=== PATIENT | male | born 1970 | race Caucasian/White ===

== ENCOUNTER → 2016-09-25 | Outpatient (CLI) | payer BC ==
--- NOTE | 2016-09-25 09:21 | DIAGNOSTIC IMAGING REPORT ---
RIGHT HIP 2 VIEWS HISTORY: HIP PAIN Right COMPARISON: None. FINDINGS: There is no fracture or dislocation. Soft tissues are unremarkable. Mild cartilage space narrowing and subchondral sclerosis at the superior aspect of the right hip consistent with osteoarthritis. The visualized pelvic bones are intact. Widening of the superior femoral head/neck junction. IMPRESSION: 1. Mild right hip osteoarthritis. 2. Widening of the superior femoral head/neck junction. This raises the possibility of femoral acetabular impingement. Electronically signed by: Richie Taylor M.D. 09/25/2016 9:19 AM Dictated Date/Time: 09/25/2016 9:18 AM
== END | disposition home or self-care (01) ==
LOC: C.RAD 08:20
PROVIDERS: ATTEND Family Medicine
DX: M25.551 Pain in right hip (principal)

== ENCOUNTER → 2017-09-20 | Outpatient (CLI) | payer OTHER ==
--- NOTE | 2017-09-20 19:24 | DIAGNOSTIC IMAGING REPORT ---
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 [employer] localizer images demonstrate no gross abnormality. There is no restricted diffusion to suggest acute or subacute infarction. Midline structures including the corpus callosum, brainstem, optic chiasm, pituitary and pineal glands are unremarkable. No cerebellar tonsillar herniation. Imaged cervical spine is unremarkable. No acute intracranial hemorrhage, midline shift, abnormal extra-axial collections, hydrocephalus or intracranial mass identified. Mild to moderate multifocal scattered areas of T2/FLAIR prolongation are seen within the periventricular and subcortical white matter of the cerebral hemispheres bilaterally. No infratentorial foci identified. Major flow voids at the level the skull base appear patent. Mastoid air cells are clear. There is mild polypoid mucosal thickening of the maxillary sinuses measuring up to 1.2 cm within the inferior left maxillary antrum. The orbits, soft tissues and skull are unremarkable. IMPRESSION: 1. No acute intracranial abnormality. 2. Indeterminate mild to moderate multifocal scattered areas of T2/FLAIR prolongation within the periventricular and subcortical white matter of the cerebral hemispheres bilaterally. These findings may reflect chronic microvascular ischemic changes or gliosis from chronic migraines among other etiologies. 3. Mild maxillary sinus disease. The above report was generated using voice recognition software. It may contain grammatical, syntax or spelling errors. Electronically signed by: Adrian Hernandez M.D. 09/20/2017 7:23 PM Dictated Date/Time: 09/20/2017 7:16 PM
== END | disposition home or self-care (01) ==
LOC: C.MRI 17:36
PROVIDERS: ATTEND Psychiatry & Neurology Neurology
DX: R90.82 White matter disease, unspecified (principal); G25.3 Myoclonus

== ENCOUNTER 2024-05-25 11:03 | Inpatient (IN) ==
--- NOTE | 2024-05-25 11:11 | Emergency Department Note ---
History of Present Illness General Chief complaint: Illness Stated complaint: REF BY DOC, NAUSEA, VOMITING, HEADACHE, DIARRHEA Time Seen by Provider: 05/25/24 11:09 History of Present Illness Maximum Pain Intensity: 9 This is a 53-year-old male with a history of myoclonus dystonia that presents to the emergency department via private vehicle referred by PCP with complaints of "nausea, vomiting, headache, diarrhea". Patient notes that 5 days ago he began with nausea, vomiting, diarrhea and headache. He has also noted some fatigue. He has noted chills, night sweats. Decreased oral intake. He can tolerate some drinks but notes he vomits every time he eats food. No close contacts with similar symptoms. Diarrhea only occurs when he eats. Patient notes he presented to the PCP office today and was referred here. Patient denies any chest pain but does feel short of breath at nighttime. No blood in the stool or vomit. Patient does note associated epigastric abdominal pain. Patient states that prior to coming here, he was at the PCP office and there was concern for possible palpable mass in the upper abdomen. No history of similar. Home Medications Medication Instructions Recorded Confirmed Type topiramate 100 mg tablet 100 mg PO BID 10/25/19 05/25/24 History cholecalciferol (vitamin D3) 50 50 mcg PO QAM 06/28/23 05/25/24 History mcg (2,000 unit) capsule citalopram 20 mg tablet 20 mg PO BID 06/28/23 05/25/24 History cyanocobalamin (vitamin B-12) 2,500 mcg PO QAM 06/28/23 05/25/24 History 2,500 mcg tablet propranolol 20 mg tablet 20 mg PO BID 06/28/23 05/25/24 History topiramate 50 mg tablet 50 mg PO BID 06/28/23 05/25/24 History ascorbic acid (vitamin C) 500 mg 500 mg PO QAM 07/09/23 05/25/24 History tablet (Vitamin C) ibuprofen 200 mg tablet 600 mg PO BID PRN Pain 07/09/23 05/25/24 History Allergies Allergy/AdvReac Type Severity Reaction Status Date / Time erythromycin base Allergy Unknown Rash Verified 08/08/23 10:36 Penicillins Allergy Unknown Rash Verified 08/08/23 10:36 Past Med/Surg History Problem List (Updated 05/25/24 @ 18:08 by [place] Monet PA-C) Abdominal pain, epigastric (Acute) Elevated procalcitonin (Acute) Leukocytosis (Acute) Abnormal computed tomography of abdomen and pelvis (Acute) Dystonia Pancreatic cancer metastasized to liver Diarrhea (Acute) Nausea and vomiting (Acute) Trochanteric bursitis, right hip Stiff neck Cervical arthritis S/P shoulder surgery Operation Date: 08/08/23 11:55 Actual Procedures p Right Shoulder Arthroscopy, Massive Rotator Cuff Repair, Subacromial Decompression, Biceps Tenodesis(Right) - Kareem Newton MD Encounter for pre-operative examination Traumatic rupture of right proximal biceps tendon Rupture of subscapularis tendon Tear of right infraspinatus tendon Supraspinatus tendon rupture Complete rotator cuff tear or rupture of right shoulder, not specified as traumatic Medical History Dizziness gradually worsening over the past year, occasional falls-he states neuro is aware and attributes this to his myoclonus dystonia Obesity Asthma in childhood Dysphagia Chronic coughing with swallowing and occasional choking-pt attributes to cervical spine osteoarthritis Spinal osteoarthritis BRCA gene positive Essential tremor Myoclonus dystonia Following with [facility] Neurology Surgical History History of vasectomy History of wisdom tooth extraction History of colonoscopy History of hand surgery Right History of foot surgery Left S/P deep brain stimulator placement Pt instructed to bring remote to [facility] appt and DOS Social History Smoking Status: Never smoker Second Hand Exposure: Yes (hx - father smoked, ex smoked); Do You Dip or Chew Tobacco: No; Hx Alcohol Use: Yes Hx Substance Use: No Preferred Language: Mexican Communication Ability: Effective College Or [employer] Registrar Required: No Beliefs That Will Affect Care: None Current Living Situation: Spouse Feels Safe at Home: Yes Assistive Devices: Glasses Review of Systems A total of 10 systems reviewed and were otherwise negative Physical Exam Vital Signs Vital Signs - 24 hr 05/25/24 11:07 05/25/24 11:28 05/25/24 11:28 Temperature 36.6 C Temperature Source Oral Pulse Rate 93 H Pulse Rate [Finger] Pulse Rate from SpO2 Sensor Respiratory Rate 20 Respiratory Effort / Characteristics Non-Labored Spontaneous Respiratory Depth Normal Respiratory Pattern Regular Blood Pressure 122/77 110/72 110/72 Blood Pressure [Right Arm] Blood Pressure Mean 92 79 79 Blood Pressure Mean [Right Arm] Blood Pressure Position [Right Arm] Pulse Oximetry 98 Oxygen Delivery Method Room Air Sepsis Recent Fever Within 48 Hours No Sepsis New/Unexplained Change in Mental Status N/A Sepsis Action Taken by Nursing No Action Required 05/25/24 11:37 05/25/24 11:37 05/25/24 11:38 Temperature Temperature Source Pulse Rate 77 Pulse Rate [Finger] Pulse Rate from SpO2 Sensor Respiratory Rate 15 Respiratory Effort / Characteristics Non-Labored Spontaneous Respiratory Depth Normal Respiratory Pattern Blood Pressure Blood Pressure [Right Arm] Blood Pressure Mean Blood Pressure Mean [Right Arm] Blood Pressure Position [Right Arm] Pulse Oximetry Oxygen Delivery Method Room Air Sepsis Recent Fever Within 48 Hours Sepsis New/Unexplained Change in Mental Status Sepsis Action Taken by Nursing 05/25/24 11:45 05/25/24 11:51 05/25/24 12:12 Temperature Temperature Source Pulse Rate 74 74 77 Pulse Rate [Finger] Pulse Rate from SpO2 Sensor 74 74 77 Respiratory Rate 24 21 21 Respiratory Effort / Characteristics Respiratory Depth Respiratory Pattern Blood Pressure Blood Pressure [Right Arm] Blood Pressure Mean Blood Pressure Mean [Right Arm] Blood Pressure Position [Right Arm] Pulse Oximetry 96 97 98 Oxygen Delivery Method Sepsis Recent Fever Within 48 Hours Sepsis New/Unexplained Change in Mental Status Sepsis Action Taken by Nursing 05/25/24 12:21 05/25/24 12:39 05/25/24 13:03 Temperature Temperature Source Pulse Rate 73 81 Pulse Rate [Finger] 70 Pulse Rate from SpO2 Sensor 74 79 Respiratory Rate 20 18 Respiratory Effort / Characteristics Respiratory Depth Respiratory Pattern Blood Pressure Blood Pressure [Right Arm] 100/45 L Blood Pressure Mean Blood Pressure Mean [Right Arm] 63 Blood Pressure Position [Right Arm] Pulse Oximetry 97 97 99 Oxygen Delivery Method Sepsis Recent Fever Within 48 Hours Sepsis New/Unexplained Change in Mental Status Sepsis Action Taken by Nursing 05/25/24 13:05 05/25/24 13:27 05/25/24 13:45 Temperature Temperature Source Pulse Rate 73 76 Pulse Rate [Finger] Pulse Rate from SpO2 Sensor 73 75 Respiratory Rate 22 23 Respiratory Effort / Characteristics Respiratory Depth Respiratory Pattern Blood Pressure 100/45 L Blood Pressure [Right Arm] Blood Pressure Mean 69 Blood Pressure Mean [Right Arm] Blood Pressure Position [Right Arm] Pulse Oximetry 95 97 Oxygen Delivery Method Sepsis Recent Fever Within 48 Hours Sepsis New/Unexplained Change in Mental Status Sepsis Action Taken by Nursing 05/25/24 14:00 05/25/24 14:00 05/25/24 14:24 Temperature Temperature Source Pulse Rate 71 79 Pulse Rate [Finger] Pulse Rate from SpO2 Sensor 71 79 Respiratory Rate 23 19 Respiratory Effort / Characteristics Respiratory Depth Respiratory Pattern Blood Pressure 128/64 Blood Pressure [Right Arm] Blood Pressure Mean 78 Blood Pressure Mean [Right Arm] Blood Pressure Position [Right Arm] Pulse Oximetry 96 98 Oxygen Delivery Method Sepsis Recent Fever Within 48 Hours Sepsis New/Unexplained Change in Mental Status Sepsis Action Taken by Nursing 05/25/24 14:42 05/25/24 15:00 Temperature Temperature Source Pulse Rate 75 Pulse Rate [Finger] 76 Pulse Rate from SpO2 Sensor 75 Respiratory Rate 21 20 Respiratory Effort / Characteristics Non-Labored Respiratory Depth Normal Respiratory Pattern Blood Pressure Blood Pressure [Right Arm] 128/74 Blood Pressure Mean Blood Pressure Mean [Right Arm] 92 Blood Pressure Position [Right Arm] Sitting Pulse Oximetry 98 97 Oxygen Delivery Method Room Air Sepsis Recent Fever Within 48 Hours Sepsis New/Unexplained Change in Mental Status Sepsis Action Taken by Nursing VITAL SIGNS - Vital signs and nursing notes were reviewed. Borderline tachycardic at 93 bpm, otherwise stable and afebrile. GENERAL -53-year-old male appearing his stated age who is in no acute distress. Communicates well with provider and answers questions appropriately. SKIN - Without rashes. No meningeal or petechial rash. HEAD - NC/AT. EYES - PERRL with EOMI bilaterally. Sclera anicteric. EARS - No deformities of external structures noted on gross examination bilaterally. External auditory canals without discharge or otorrhea. Tympanic membranes pearly boyer without retraction or bulging. No fluid or purulent material visualized behind the TM. Handle of malleus, umbo, cone of light, pars tensa/flaccid all easily visualized. NOSE - Midline and without cyanosis. MOUTH/OROPHARYNX - Without perioral cyanosis. Buccal mucosa pink and moist and without leukoplakia. Tongue midline with equal elevation of palate bilaterally. No tonsillar hypertrophy, erythema, or exudates noted. Fair dentition noted. No drooling, stridor, trismus, wheezing or tripoding. Normal phonation. NECK - Neck with FROM. Supple to palpation. No lymphadenopathy noted. No nuchal rigidity. LUNGS - Chest wall symmetric without accessory muscle use, intercostals retractions, or central cyanosis. Normal vesicular breath sounds CTA B/L. No wheezes, rales, or rhonchi appreciated. CARDIAC - RRR ABDOMEN - Abdominal contour normal without pulsations or visible masses. BS normoactive all four quadrants. No tenderness, palpable masses, hepatosplenomegaly, or ascites noted. EXTREMITIES - No clubbing or peripheral cyanosis. +5/5 strength noted in UE/LE bilaterally. NEUROLOGIC - Cranial nerves II through XII grossly intact. PSYCH -alert, oriented and pleasant on exam. Course Administered Medications Discontinued Medications Sodium Chloride (Nss) 1,000 mls @ 999 mls/hr IV .Q1H1M ONE Stop: 05/25/24 12:17 Last Infusion: 05/25/24 12:48 Dose: Infused Documented By: Admin: 05/25/24 11:39 Dose: 999 mls/hr Documented By: AARON Sodium Chloride (Nss) 1,000 mls @ 999 mls/hr IV .Q1H1M ONE Stop: 05/25/24 14:24 Last Infusion: 05/25/24 14:45 Dose: Infused Documented By: Admin: 05/25/24 13:44 Dose: 999 mls/hr Documented By: AARON Cefepime HCl (Maxipime 2000mg) 2,000 mg in 20 mls @ 5 mls/min IV NOW STA; Protocol Stop: 05/25/24 13:45 Last Admin: 05/25/24 13:46 Dose: 5 mls/min Documented By: AARON Ioversol (Optiray 320 100ml) 93 ml IV ONCE ONE Stop: 05/25/24 12:50 Last Admin: 05/25/24 12:50 Dose: 93 ml Documented By: KORY Medical Decision Making Laboratory Data 05/25/24 11:35 05/25/24 11:35 Lab Results 05/25/24 05/25/24 Range/Units 11:35 13:02 WBC 28.42 H (4.8-10.8) K/ul RBC 4.41 L (4.70-6.10) M/uL Hgb 11.5 L (14.0-18.0) g/dl Hct 36.8 L (42.0-52.0) % MCV 83.4 (80.0-100.0) fL MCH 26.1 (25.0-34.0) pg MCHC 31.3 L (32.0-36.0) g/dL RDW Std Deviation 44.3 (36.4-46.3) fL RDW Coeff of Sd 14.6 H (11.5-14.5) % Plt Count 359 (130-400) K/uL MPV 10.8 (9.4-12.4) fL Immature Gran % (Auto) 1.1 % Neut % (Auto) 77.3 % Lymph % (Auto) 4.0 % [place] % (Auto) 6.0 % Eos % (Auto) 11.2 % Baso % (Auto) 0.4 % Neut # (Auto) 21.99 H (1.40-6.50) K/uL Lymph # (Auto) 1.14 L (1.20-3.40) K/uL [place] # (Auto) 1.71 H (0.11-0.59) K/uL Eos # (Auto) 3.17 H (0.00-0.50) K/uL Baso # (Auto) 0.10 (0.00-0.20) K/uL Immature Gran # (Auto) 0.31 H (0.01-0.20) K/uL Toxic Vacuolation 1+ Polychromasia 1+ PT 16.2 H (9.0-12.0) Seconds INR 1.6 H (0.9-1.1) APTT 31 (21-31) Seconds PTT Ratio 1.2 Sodium 134 L (136-145) mmol/L Potassium 3.5 (3.5-5.1) mmol/L Chloride 101 (98-107) mmol/L Carbon Dioxide 21 (21-32) mmol/L Anion Gap 12 H (3-11) BUN 17 (6-23) mg/dl Creatinine 0.92 (0.6-1.4) mg/dl Est Cr Clr Drug Dosing 105.2 ml/min eGFR 98.85 BUN/Creatinine Ratio 18.5 (10-20) Glucose 94 (70-99(Fasting)) mg/dl Lactate 1.5 (0.4-2.0) mmol/L Calcium 9.1 (8.6-10.3) mg/dl Magnesium 2.2 (1.7-2.4) mg/dl Total Bilirubin 1.3 H (0.2-1.0) mg/dl AST 14 (13-39) U/L ALT 20 (7-52) U/L Alkaline Phosphatase 212 H (34-104) U/L Troponin I High Sens 11.5 (0-20) pg/ml Total Protein 7.1 (6.0-8.3) gm/dl Albumin 3.3 L (3.4-5.0) gm/dl Globulin 3.8 (2.5-4.0) gm/dl Albumin/Globulin Ratio 0.9 (0.9-2) Lipase 16 (11-82) U/L Procalcitonin 0.73 H (0-0.5) ng/ml TSH 2.859 (0.300-4.500) uIu/ml Urine Color Dark Yellow Urine Appearance Clear (Clear) Urine pH 5.5 (4.5-7.5) Ur Specific [place] 1.018 (1.000-1.030) Urine Protein Trace H (Negative) Urine Glucose (UA) Negative (Negative) Urine Ketones Trace H (Negative) Urine Blood Negative (Negative) Urine Nitrite Negative (Negative) Urine Bilirubin Negative (Negative) Urine Urobilinogen Negative (Negative) Ur Leukocyte Esterase Negative (Negative) Urine WBC (Auto) 0-5 (0-5) /hpf Urine RBC (Auto) 0-2 (0-2) /hpf U Hyaline Cast (Auto) 0-2 (0-2) /lpf U Epithel Cells (Auto) 0-2 (0-2) /hpf Urine Bacteria (Auto) None Seen (None Seen) Urine Mucus Present A (None Prsent) Adenovirus (PCR) Not Detected (NotDetected) B. pertussis DNA (PCR) Not Detected (NotDetected) B.parapertussis DNA PCR Not Detected (NotDetected) Lyme Disease Screen Negative (Negative) C. pneumoniae DNA (PCR) Not Detected (NotDetected) Coronavirus OC43 (PCR) Not Detected (NotDetected) Coronavirus HKU1 (PCR) Not Detected (NotDetected) Coronavirus 229E (PCR) Not Detected (NotDetected) SARS-CoV-2 (PCR) Not Detected (NotDetected) Coronavirus NL63 (PCR) Not Detected (NotDetected) Human Metapneumovir PCR Not Detected (NotDetected) Influenza Type A (PCR) Not Detected (NotDetected) Influenza Type B (PCR) Not Detected (NotDetected) M. pneumoniae (PCR) Not Detected (NotDetected) Parainfluenza 1 (PCR) Not Detected (NotDetected) Parainfluenza 2 (PCR) Not Detected (NotDetected) Parainfluenza 3 (PCR) Not Detected (NotDetected) Parainfluenza 4 (PCR) Not Detected (NotDetected) RSV (PCR) Not Detected (NotDetected) Entero/Rhino (PCR) Not Detected (NotDetected) Imaging Data Radiologist's Impression: Chest X-Ray 05/25/24 11:18 XR chest 1V portable CLINICAL HISTORY: cough TECHNIQUE: Single frontal radiograph of the chest was obtained. Comparison: Comparison is made to chest radiograph 07/18/2023 FINDINGS: Lines and tubes are stable. The cardiomediastinal silhouette is normal. The lungs are clear. No evidence of pleural effusion or pneumothorax. IMPRESSION: No acute chest disease. ACT 112: Negative or not required by law. Electronically signed by: David Toney M.D. 05/25/2024 12:02 PM Abdomen/Pelvis CT 05/25/24 12:37 CT abd pelvis IV con only CLINICAL HISTORY: Epigastric abd pain, nausea, vomiting TECHNIQUE: Helical axial images of the abdomen and pelvis were obtained and displayed. Automated dose lowering techniques and/or adjustment according to patient size were utilized for this exam. This exam was performed with intravenous contrast. CT DOSE: 3267.55 mGy.cm COMPARISON: None available at the time of this dictation. FINDINGS: Lower chest: For findings above the diaphragm, please see CT chest performed same day. Liver: Innumerable hepatic nodules are seen. Gallbladder and biliary tree: No calcified gallstones. Normal caliber wall. No intra- or extrahepatic biliary ductal dilation. Pancreas: There is a 30 mm hypodensity in the tail of the pancreas. Spleen: Unremarkable. Adrenals: Unremarkable. Kidneys and ureters: Unremarkable. Bladder: Unremarkable. Reproductive organs: Unremarkable. Bowel: Diverticulosis is seen without diverticulitis. The appendix is normal. Lymph nodes Retroperitoneal: Unremarkable. Pelvic: Unremarkable. Mesenteric: Unremarkable. Peritoneum: Normal. Vessels: Atherosclerotic calcifications are seen. Abdominal wall: A fat-containing umbilical hernia is seen. Fat-containing left inguinal hernia is seen. Bones: Degenerative changes in the visualized spine. IMPRESSION: 1. Interval removal hepatic hypodensities are seen concerning for metastatic disease. 2. Pancreatic tail hypodensity may represent metastasis versus primary pancreatic malignancy. 3. Diverticulosis without diverticulitis. ACT 112: Negative or not required by law. Electronically signed by: David Toney M.D. 05/25/2024 1:[address] 05/25/24 12:37 CT chest diagnostic w con CLINICAL HISTORY: Epigastric abd pain, nausea, vomiting TECHNIQUE: Multidetector row helical CT of the chest was performed with intravenous contrast. Coronal and sagittal reformations were obtained. Automated dose lowering techniques and/or adjustment according to patient size were utilized for this exam. Comparison: Comparison is made to chest radiograph 05/25/2024 FINDINGS: Lungs and pleura: Normal. No suspicious pulmonary nodules. Heart and pericardium: Heart size is normal. No pericardial effusion. Vessels: Unremarkable. Mediastinum and wilfred: Unremarkable. Chest wall and lower neck: Unremarkable. Abdomen: For findings below the diaphragm, please refer to CT of the abdomen dated the same. Bones: Degenerative changes in the thoracic spine. IMPRESSION: No acute abnormalities are seen in this patient with epigastric pain and vomiting. Please see CT abdomen for findings of liver lesions. ACT 112: Negative or not required by law. Electronically signed by: David Toney M.D. 05/25/2024 1:[address] 05/25/24 12:37 CT OF THE HEAD WITHOUT CONTRAST CLINICAL HISTORY: headache, nausea, vomiting COMPARISON STUDY: MRI of the brain September 20, 2017. TECHNIQUE: Helical axial images of the head were obtained without IV contrast. Automated exposure control was utilized for the study. A dose lowering technique was utilized adhering to the principles of ALARA. FINDINGS: No acute intracranial hemorrhage, midline shift or mass effect is present. Bilateral stimulators terminates within the thalami. This exam is mildly compromised by associated artifact. The ventricular system is unremarkable. The basal cisterns are patent. No extra-axial collections are present. There are no findings to suggest acute dural sinus thrombosis or acute territorial infarct. No significant calvarial abnormalities are present. Visualized portions of the sinuses and mastoid air cells are clear. IMPRESSION: No acute intracranial findings. ACT 112: Negative or not required by law. Electronically signed by: Heriberto Herrera M.D. 05/25/2024 2:00 PM MDM Narrative Patient was seen and evaluated as above in room B04. Review was performed of triage nursing notes and vital signs. I did review the PCP visit from earlier today. In short, patient presents with 5 days of nausea, vomiting, diarrhea, headache, abdominal pain with associated fatigue. Patient at baseline does note history of myoclonus dystonia. IV access with established. Labs were drawn. labs reveal leukocytosis 28.42. Mild anemia with hemoglobin of 11.5. INR 1.6. Hyponatremia 134. T. bili 1.3, alk phos 212. Pro-[place] 0.73 with a normal lactate. TSH was euthyroid state. Troponin normal. Urinalysis does not suggest infection. [employer] upper respiratory panel was negative. EKG was performed and per my interpretation reveals normal sinus rhythm at a rate of 77 bpm. QTc 454. QRS 104. No ST elevation. CT imaging of the head, chest as well as abdomen/pelvis was obtained. Head negative. Chest negative. Unfortunately the abdomen pelvis did have significant findings noting innumerable hepatic hypodensities concerning for metastatic disease with pancreatic tail hypodensity as well. I reviewed this with the patient as well as . Plan at this time is inpatient management. While here the patient was medicated with IV fluids to replenish volume loss with presenting symptoms today. Furthermore, IV antibiotics also ordered pending blood cultures. Case discussed with the hospitalist service. Please refer to further documentation regarding his stay. GCS: 15 In the evaluation and treatment of this patient the following differential diagnoses were entertained: Viral URI, malignancy, pneumonia, sepsis, among others. Impression & Plan Nausea and vomiting, Abnormal computed tomography of abdomen and pelvis, Diarrhea, Leukocytosis, Elevated procalcitonin, Abdominal pain, epigastric Discharge Plan Visit Data Chief Complaint: Illness Stated Complaint: REF BY DOC, NAUSEA, VOMITING, HEADACHE, DIARRHEA ED Provider: Niranjan Navarrete ED Midlevel Provider: Wset Monet Discharge Problem: Nausea and vomiting, Abnormal computed tomography of abdomen and pelvis, Diarrhea, Leukocytosis, Elevated procalcitonin, Abdominal pain, epigastric Patient Disposition: Admitted As Inpatient Condition: Good Discharge Instructions Interventions: ED Discharge Assessment Last Done: 05/25/24 17:31
[2024-05-25] MEDS: SODIUM CHLORIDE 0.9% 1,000 ML IV ONE ×2 (11:39→13:44)
--- NOTE | 2024-05-25 12:03 | XRay Report ---
XR chest 1V portable CLINICAL HISTORY: cough TECHNIQUE: Single frontal radiograph of the chest was obtained. Comparison: Comparison is made to chest radiograph 07/18/2023 FINDINGS: Lines and tubes are stable. The cardiomediastinal silhouette is normal. The lungs are clear. No evide nce of pleural effusion or pneumothorax. IMPRESSION: No acute chest disease. ACT 112: Negative or not required by law. Electronically signed by: David Toney M.D. 05/25/2024 12:02 PM
[2024-05-25 12:08] LABS: Hematocrit (blood only) 36.8 % (42.0-52.0); Hemoglobin 11.5 g/dl (14.0-18.0); Mean Corpuscular Hemoglobin 26.1 pg (25.0-34.0); Mean Corpuscular Hgb Conc 31.3 g/dL (32.0-36.0); Mean Corpuscular Volume 83.4 fL (80.0-100.0); Mean Platelet Volume 10.8 fL (9.4-12.4); Platelet Count 359 K/uL (130-400); RDW Coefficient of Variation 14.6 % (11.5-14.5); RDW Standard Deviation 44.3 fL (36.4-46.3); Red Blood Count 4.41 M/uL (4.70-6.10); White Blood Count 28.42 K/ul (4.8-10.8)
[2024-05-25 12:26] LABS: Albumin Globulin Ratio 0.9 (0.9-2); Albumin Level 3.3 gm/dl (3.4-5.0); BUN Creatinine Ratio 18.5 (10-20); Bilirubin,Total 1.3 mg/dl (0.2-1.0); Calcium 9.1 mg/dl (8.6-10.3); Creatinine Clr Calc Pharmacy 105.2 ml/min; Globulin 3.8 gm/dl (2.5-4.0); Magnesium 2.2 mg/dl (1.7-2.4); Potassium 3.5 mmol/L (3.5-5.1); Total Protein 7.1 gm/dl (6.0-8.3)
[2024-05-25 12:32] LABS: Troponin I High Sensitivity 11.5 pg/ml (0-20)
[2024-05-25 12:33] LABS: Basophils % (auto) 0.4 %; Eosinophils # (auto) 3.17 K/uL (0.00-0.50); Eosinophils % (auto) 11.2 %; Immature Granulocytes # (auto) 0.31 K/uL (0.01-0.20); Immature Granulocytes % (auto) 1.1 %; Lymphocytes # (auto) 1.14 K/uL (1.20-3.40); Monocytes # (auto) 1.71 K/uL (0.11-0.59); Neutrophils # (auto) 21.99 K/uL (1.40-6.50); Neutrophils % (auto) 77.3 %; Polychromasia 1+; Toxic Vacuolation 1+
[2024-05-25 12:36] LABS: INR 1.6 (0.9-1.1); Partial Thromboplastin Ratio 1.2; Partial Thromboplastin Time 31 Seconds (21-31); Prothrombin Time 16.2 Seconds (9.0-12.0)
[2024-05-25 12:39] LABS: Adenovirus PCR Not Detected (NotDetected); Bordetella parapertussis PCR Not Detected (NotDetected); Bordetella pertussis PCR Not Detected (NotDetected); Chlamydia pneumoniae PCR Not Detected (NotDetected); Coronavirus 229E PCR Not Detected (NotDetected); Coronavirus CoV-2 (COVID19)PCR Not Detected (NotDetected); Coronavirus HKU1 PCR Not Detected (NotDetected); Coronavirus NL63 PCR Not Detected (NotDetected); Coronavirus OC43PCR Not Detected (NotDetected); Human Metapneumovirus PCR Not Detected (NotDetected); Influenza A PCR Not Detected (NotDetected); Influenza B PCR Not Detected (NotDetected); Mycoplasma pneumoniae PCR Not Detected (NotDetected); Parainfluenza Virus 1 PCR Not Detected (NotDetected); Parainfluenza Virus 2 PCR Not Detected (NotDetected); Parainfluenza Virus 3 PCR Not Detected (NotDetected); Parainfluenza Virus 4 PCR Not Detected (NotDetected); Respiratory Syncytial VirusPCR Not Detected (NotDetected); Rhinovirus/Enterovirus PCR Not Detected (NotDetected)
[2024-05-25 12:41] LABS: Thyroid Stimulating Hormone 2.859 uIu/ml (0.300-4.500)
[2024-05-25] MEDS: OPTIRAY 320 100ml IV ONE (12:50)
[2024-05-25 13:26] LABS: Appearance Urine Clear (Clear); Bacteria Urine Automated None Seen (None Seen); Bilirubin Urine Negative (Negative); Blood Urine Negative (Negative); Cast Urine Automated 0-2 /lpf (0-2); Color Urine Dark Yellow; Epithelial Cell Urine Auto 0-2 /hpf (0-2); Glucose Urine UA Negative (Negative); Ketones Urine Trace (Negative); Leukocyte Esterase Urine Negative (Negative); Mucus Urine Present (None Prsent); Nitrite Urine Negative (Negative); Protein Urine Trace (Negative); RBC Urine Automated 0-2 /hpf (0-2); Specific Gravity Urine 1.018 (1.000-1.030); Urobilinogen Urine Negative (Negative); WBC Urine Automated 0-5 /hpf (0-5); pH Urine 5.5 (4.5-7.5)
[2024-05-25] MEDS: CEFEPIME 2000MG 2,000 MG/20 ML SYR IV STA (13:46)
--- NOTE | 2024-05-25 13:49 | CT Scan Report ---
CT chest diagnostic w con CLINICAL HISTORY: Epigastric abd pain, nausea, vomiting TECHNIQUE: Multidetector row helical CT of the chest was performed with intravenous contrast. Coronal and sagittal reformations were obtained. Automated dose lowering techniques and/or adjustment accord ing to patient size were utilized for this exam. Comparison: Comparison is made to chest radiograph 05/25/2024 FINDINGS: Lungs and pleura: Normal. No suspicious pulmonary nodules. Heart and pericardium: Heart size is normal. No pericardial effusion. Vessels: Unremarkable. Mediastinum and wilfred: Unremarkable. Chest wall and lower neck: Unremarkable. Abdomen: For findings below the diaphragm, please refer to CT of the abdomen dated the same. Bones: Degenerative changes in the thoracic spine. IMPRESSION: No acute abnormalities are seen in this patient with epigastric pain and vomiting. Please see CT abdo men for findings of liver lesions. ACT 112: Negative or not required by law. Electronically signed by: David Toney M.D. 05/25/2024 1:48 PM
--- NOTE | 2024-05-25 13:57 | CT Scan Report ---
CT abd pelvis IV con only CLINICAL HISTORY: Epigastric abd pain, nausea, vomiting TECHNIQUE: Helical axial images of the abdomen and pelvis were obtained and displayed. Automated dose lowering techniques and/or adjustment according to patient size were utilized for this exam. This e xam was performed with intravenous contrast. CT DOSE: 3267.55 mGy.cm COMPARISON: None available at the time of this dictation. FINDINGS: Lower chest: For findings above the diaphragm, please see CT chest performed same day. Liver: Innumerable hepatic nodules are seen. Gallbladder and biliary tree: No calcified gallstones. Normal caliber wall. No intra- or extrahepatic biliary ductal dilation. Pancreas: There is a 30 mm hypodensity in the tail of the pancreas. Spleen: Unremarkable. Adrenals: Unremarkable. Kidneys and ureters: Unremarkable. Bladder: Unremarkable. Reproductive organs: Unremarkable. Bowel: Diverticulosis is seen without diverticulitis. The appendix is normal. Lymph nodes Retroperitoneal: Unremarkable. Pelvic: Unremarkable. Mesenteric: Unremarkable. Peritoneum: Normal. Vessels: Atherosclerotic calcifications are seen. Abdominal wall: A fat-containing umbilical hernia is seen. Fat-containing left inguinal hernia is see n. Bones: Degenerative changes in the visualized spine. IMPRESSION: 1. Interval removal hepatic hypodensities are seen concerning for metastatic disease. 2. Pancreatic tail hypodensity may represent metastasis versus primary pancreatic malignancy. 3. Diverticulosis without diverticulitis. ACT 112: Negative or not required by law. Electronically signed by: David Toney M.D. 05/25/2024 1:56 PM
--- NOTE | 2024-05-25 14:03 | CT Scan Report ---
CT OF THE HEAD WITHOUT CONTRAST CLINICAL HISTORY: headache, nausea, vomiting COMPARISON STUDY: MRI of the brain September 20, 2017. TECHNIQUE: Helical axial images of the head were obtained without IV contrast. Automated exposure con trol was utilized for the study. A dose lowering technique was utilized adhering to the principles o f ALARA. FINDINGS: No acute intracranial hemorrhage, midline shift or mass effect is present. Bilateral stimul ators terminates within the thalami. This exam is mildly compromised by associated artifact. The vent ricular system is unremarkable. The basal cisterns are patent. No extra-axial collections are present . There are no findings to suggest acute dural sinus thrombosis or acute territorial infarct. No sign ificant calvarial abnormalities are present. Visualized portions of the sinuses and mastoid air cells are clear. IMPRESSION: No acute intracranial findings. ACT 112: Negative or not required by law. Electronically signed by: Heriberto Herrera M.D. 05/25/2024 2:00 PM
--- NOTE | 2024-05-25 15:17 | History & Physical Report ---
Date of Service May 25, 2024 Assessment & Plan (1) Nausea and vomiting: Plan: Symptomatic care. IV fluids. Antiemetics (2) Diarrhea: Plan: Could be viral, associated with nausea and vomiting. Symptomatic care. (3) Pancreatic cancer metastasized to liver: Plan: Incidental finding of pancreatic tail lesion with multiple metastases to the liver. Oncology consultation requested. 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 He denies hematemesis melena or hematochezia. He has lost some weight recently and has had some night sweats. Otherwise he has been stable. Incidental finding of what appears to be a pancreatic malignancy with multiple liver metastases seen on CT scan. Oncology has been consulted. CA 19-9 ordered and pending. Will treat with antiemetics and administer IV fluids until nausea, vomiting, diarrhea subside. Pain control measures ordered. He denies fever or chills Allergies Allergy/AdvReac Type Severity Reaction Status Date / Time erythromycin base Allergy Unknown Rash Verified 08/08/23 10:36 Penicillins Allergy Unknown Rash Verified 08/08/23 10:36 Home Medications Medication Instructions Recorded Confirmed Type topiramate 100 mg tablet 100 mg PO BID 10/25/19 08/08/23 History cholecalciferol (vitamin D3) 50 50 mcg PO QAM 06/28/23 08/08/23 History mcg (2,000 unit) capsule citalopram 20 mg tablet 10 mg PO BID 06/28/23 08/08/23 History cyanocobalamin (vitamin B-12) 2,500 mcg PO QAM 06/28/23 08/08/23 History 2,500 mcg tablet propranolol 20 mg tablet 20 mg PO BID 06/28/23 08/08/23 History topiramate 50 mg tablet 50 mg PO BID 06/28/23 08/08/23 History ascorbic acid (vitamin C) 500 mg 500 mg PO QAM 07/09/23 08/08/23 History tablet (Vitamin C) ibuprofen 200 mg tablet 600 mg PO BID PRN Pain 07/09/23 08/08/23 History ondansetron 4 mg disintegrating 4 mg PO Q6H PRN nausea and 08/08/23 Rx tablet vomiting #10 tabs oxycodone 5 mg tablet 5 - 10 mg (1 - 2 x 5 mg) PO Q6H 08/08/23 Rx PRN post operative pain #18 tabs cyclobenzaprine 5 mg tablet 5 mg PO TID PRN muscle spasm #30 11/20/23 11/20/23 Rx tabs Past Med/Surg History Problem List (Updated 05/25/24 @ 15:16 by Abner Burns MD) Dystonia Pancreatic cancer metastasized to liver Diarrhea Nausea and vomiting Trochanteric bursitis, right hip Stiff neck Cervical arthritis S/P shoulder surgery Operation Date: 08/08/23 11:55 Actual Procedures p Right Shoulder Arthroscopy, Massive Rotator Cuff Repair, Subacromial Decompression, Biceps Tenodesis(Right) - Kareem Newton MD Encounter for pre-operative examination Traumatic rupture of right proximal biceps tendon Rupture of subscapularis tendon Tear of right infraspinatus tendon Supraspinatus tendon rupture Complete rotator cuff tear or rupture of right shoulder, not specified as traumatic Medical History Dizziness gradually worsening over the past year, occasional falls-he states neuro is aware and attributes this to his myoclonus dystonia Obesity Asthma in childhood Dysphagia Chronic coughing with swallowing and occasional choking-pt attributes to cervical spine osteoarthritis Spinal osteoarthritis BRCA gene positive Essential tremor Myoclonus dystonia Following with [facility] Neurology Surgical History History of vasectomy History of wisdom tooth extraction History of colonoscopy History of hand surgery Right History of foot surgery Left S/P deep brain stimulator placement Pt instructed to bring remote to [facility] appt and DOS Social History Smoking Status: Never smoker Second Hand Exposure: Yes (hx - father smoked, ex smoked); Do You Dip or Chew Tobacco: No; Hx Alcohol Use: Yes Hx Substance Use: No Preferred Language: Puerto Rican Communication Ability: Effective Fuel Manager Required: No Beliefs That Will Affect Care: None Current Living Situation: Spouse Feels Safe at Home: Yes Assistive Devices: Glasses Review of Systems 2 Review of Systems: Constitutionalno fever or chills. He has experienced some recent weight loss ENTno blurred vision, no double vision, no epistaxis, no sore throat Respiratoryno cough, no wheezing, no shortness of breath Cardiacno palpitations, no chest pain, no syncope GInausea vomiting and diarrhea but no hematemesis melena or hematochezia GUno urinary retention, no urinary incontinence, no dysuria, no hematuria Musculoskeletalno joint pain, no muscle tenderness Skinno bruising, no rashes, no pruritus Neurono isolated weakness, no paresthesia, no weakness Psychno depression, no anxiety Physical Exam 2 Physical Exam: General-alert and oriented x3, no fever, no chills HEENT-head atraumatic and normocephalic, pupils equal and reactive to light, extraocular muscles intact Neck-no lymphadenopathy or thyromegaly, trachea midline Chest-clear to auscultation. No rales, wheezing or rhonchi Cardiac-regular rate and rhythm, normal S1 and S2 Abdomen-normal bowel sounds, no hepatosplenomegaly. Nondistended. No palpable masses Extremities-no cyanosis, clubbing, or edema Neuro-cranial nerves II through XII intact, motor and sensory function within normal limits, strength symmetrical, no focal deficits Psych-normal affect, normal mood Results & Data Results & Data Vital Signs (Past 12 Hours) Vital Signs Temp Pulse Pulse Resp BP BP Pulse Ox 05/25/24 14:42 75 21 98 05/25/24 14:24 79 19 98 05/25/24 14:00 71 23 96 05/25/24 14:00 128/64 05/25/24 13:45 76 23 97 05/25/24 13:27 73 22 95 05/25/24 13:05 100/45 L 05/25/24 13:03 70 18 100/45 L 99 05/25/24 12:39 81 97 05/25/24 12:21 73 20 97 05/25/24 12:12 77 21 98 05/25/24 11:51 74 21 97 05/25/24 11:45 74 24 96 05/25/24 11:38 77 05/25/24 11:37 05/25/24 11:37 15 05/25/24 11:28 110/72 05/25/24 11:28 110/72 05/25/24 11:07 36.6 C 93 H 20 122/77 98 O2 Del Method 05/25/24 14:42 05/25/24 14:24 05/25/24 14:00 05/25/24 14:00 05/25/24 13:45 05/25/24 13:27 05/25/24 13:05 05/25/24 13:03 05/25/24 12:39 05/25/24 12:21 05/25/24 12:12 05/25/24 11:51 05/25/24 11:45 05/25/24 11:38 05/25/24 11:37 Room Air 05/25/24 11:37 05/25/24 11:28 05/25/24 11:28 05/25/24 11:07 Room Air Laboratory Results 05/25/24 11:35 05/25/24 11:35 Code Status & VTE Plan Code Status Full code PG Care Time/CCT Total # of Minutes Spent Total Time Spent with Patient: Total time spent is greater than 50% in coordination of care (as documented) at patient's floor/unit and/or counseling patient: Coding Level of Care Code 30164 INT INP/OBS CARE 3/75MIN Diagnoses Nausea and vomiting R11.2 Diarrhea R19.7 Pancreatic cancer metastasized to liver C25.9; C78.7 Dystonia G24.9
[2024-05-25] MEDS ORDERED: MoRPHine SULFATE 2 MG/ML CARP IV PRN (17:59)
[2024-05-25] MEDS ORDERED: ONDANSETRON INJ 2 MG/ML 2 ML VIAL IV PRN (17:59)
[2024-05-25] MEDS: SODIUM CHLORIDE 0.9% 1,000 ML IV SCH (18:17)
[2024-05-25] MEDS: ACETAMINOPHEN 325 MG TAB PO PRN (18:33)
[2024-05-25] MEDS: MELATONIN 3 MG TAB PO SCH (21:38)
[2024-05-25] MEDS: CITALOPRAM 20 MG TAB PO SCH (21:38)
[2024-05-25] MEDS: TOPIRAMATE 50 MG TAB PO SCH (21:40)
[2024-05-25] MEDS: PROPRANOLOL HCL 20 MG TAB PO SCH (21:40)
[2024-05-25] MEDS: HEPARIN SOD 5,000 UNIT/0.5 ML VIAL SQ SCH (21:40)
[2024-05-25] MEDS: TOPIRAMATE 100 MG TAB PO SCH (21:40)
--- NOTE | 2024-05-26 06:47 | Electrocardiogram Report ---
Test Reason : Blood Pressure : */* mmHG Vent. Rate : 77 BPM Atrial Rate : 77 BPM P-R Int : 160 ms QRS Dur : 104 ms QT Int : 402 ms P-R-T Axes : 77 31 12 degrees QTcB Int : 454 ms Poor data quality, interpretation may be adversely affected Normal sinus rhythm Normal ECG When compared with ECG of 18-Jul-2023 08:48, Questionable change in QRS duration Confirmed by Mathieu Patino ([id number]) on 05/26/2024 6:47:19 AM Referred By: Confirmed By: Mathieu Patino
[2024-05-26 06:55] LABS: Hematocrit (blood only) 30.3 % (42.0-52.0); Hemoglobin 9.5 g/dl (14.0-18.0); Mean Corpuscular Hemoglobin 26.5 pg (25.0-34.0); Mean Corpuscular Hgb Conc 31.4 g/dL (32.0-36.0); Mean Corpuscular Volume 84.4 fL (80.0-100.0); Platelet Count 303 K/uL (130-400); RDW Coefficient of Variation 14.7 % (11.5-14.5); RDW Standard Deviation 45.1 fL (36.4-46.3); Red Blood Count 3.59 M/uL (4.70-6.10); White Blood Count 26.35 K/ul (4.8-10.8)
[2024-05-26 07:10] LABS: BUN Creatinine Ratio 14.1 (10-20); Potassium 3.5 mmol/L (3.5-5.1)
[2024-05-26 07:19] LABS: Basophils % (auto) 0.4 %; Eosinophils # (auto) 3.32 K/uL (0.00-0.50); Eosinophils % (auto) 12.6 %; Immature Granulocytes % (auto) 1.5 %; Lymphocytes # (auto) 1.06 K/uL (1.20-3.40); Monocytes # (auto) 1.46 K/uL (0.11-0.59); Monocytes % (auto) 5.5 %; Neutrophils # (auto) 20.01 K/uL (1.40-6.50); Polychromasia 1+
[2024-05-26] MEDS: CHOLECALCIFEROL 25 MCG (1000 UNITS) TAB PO SCH (08:45)
[2024-05-26] MEDS: CYANOCOBALAMIN (B-12) 2,500 MCG TABLET PO SCH (08:45)
[2024-05-26] MEDS: ASCORBIC ACID 500 MG TAB PO SCH (08:46)
--- NOTE | 2024-05-26 09:41 | Oncology Consultation ---
Date of Consultation May 26, 2024 Assessment & Plan (1) Liver lesion: (2) BRCA gene mutation positive in male: Plan Very pleasant gentleman with medical history of BRCA2 mutation admitted with GI complaints and found to have likely pancreatic tail lesion and multiple liver lesions. Based on clinical history and imaging, suspect that he likely has metastatic pancreatic cancer. Discussed with patient and his that I would recommend liver biopsy. Discussed with IR, plan to proceed with biopsy tomorrow afternoon. If he is confirmed to have pancreatic cancer with metastasis, goals of treatment will be to prolong life and improve symptoms. Would plan to treat with either FOLFIRINOX or gem/Abraxane followed by maintenance PARP inhibitor in the setting of BRCA2 mutation. History of Present Illness Reason for Consultation: Likely pancreatic cancer with metastasis Attending Physician: Abner Burns MD History of Present Illness 53-year-old gentleman who presented to the ER at [facility] with complaints of nausea, vomiting, headache and diarrhea. CT chest, abdomen and pelvis on 05/25/2024 revealed innumerable hepatic hypodensities concerning for metastatic disease, pancreatic tail hypodensity possibly representing metastasis versus primary pancreatic malignancy. CA 19-9 was ordered and is pending. Patient states that he has a history of BRCA2 mutation. Has extensive family history of breast malignancy. Allergies Allergy/AdvReac Type Severity Reaction Status Date / Time erythromycin base Allergy Unknown Rash Verified 08/08/23 10:36 Penicillins Allergy Unknown Rash Verified 08/08/23 10:36 Home Medications Medication Instructions Recorded Confirmed Type topiramate 100 mg tablet 100 mg PO BID 10/25/19 05/25/24 History cholecalciferol (vitamin D3) 50 50 mcg PO QAM 06/28/23 05/25/24 History mcg (2,000 unit) capsule citalopram 20 mg tablet 20 mg PO BID 06/28/23 05/25/24 History cyanocobalamin (vitamin B-12) 2,500 mcg PO QAM 06/28/23 05/25/24 History 2,500 mcg tablet propranolol 20 mg tablet 20 mg PO BID 06/28/23 05/25/24 History topiramate 50 mg tablet 50 mg PO BID 06/28/23 05/25/24 History ascorbic acid (vitamin C) 500 mg 500 mg PO QAM 07/09/23 05/25/24 History tablet (Vitamin C) ibuprofen 200 mg tablet 600 mg PO BID PRN Pain 07/09/23 05/25/24 History Patient History Medical History Dizziness gradually worsening over the past year, occasional falls-he states neuro is aware and attributes this to his myoclonus dystonia Obesity Asthma in childhood Dysphagia Chronic coughing with swallowing and occasional choking-pt attributes to cervical spine osteoarthritis Spinal osteoarthritis BRCA gene positive Essential tremor Myoclonus dystonia Following with [facility] [place]rology Surgical History History of vasectomy History of wisdom tooth extraction History of colonoscopy History of hand surgery Right History of foot surgery Left S/P deep brain stimulator placement Pt instructed to bring remote to [facility] appt and DOS Social History Smoking Status: Never smoker Second Hand Exposure: Yes (hx - father smoked, ex smoked); Do You Dip or Chew Tobacco: No; Hx Alcohol Use: No Hx Substance Use: No Preferred Language: Maltese Communication Ability: Effective Pediatric Dental Hygienist Required: No Beliefs That Will Affect Care: None Current Living Situation: Spouse Feels Safe at Home: Yes Assistive Devices: None Results & Data Vital Signs (Past 12 Hours) Vital Signs Temp Pulse Resp BP Pulse Ox O2 Del Method 05/26/24 08:49 103/63 05/26/24 07:46 37.1 C 68 16 94/62 L 96 Room Air
[2024-05-26] MEDS: traMADol HCL 50 MG TABLET PO STA (12:48)
[2024-05-26] MEDS: IRON SUCROSE 300 MG in SODIUM CHLORIDE 0.9% 250 ML IV ONE (14:15)
--- NOTE | 2024-05-26 16:08 | Hospitalist Progress Note ---
Date of Service May 26, 2024 Assessment & Plan (1) Nausea and vomiting: Plan: Resolved. He is now eating. IV fluids have been discontinued. Antiemetics as needed (2) Diarrhea: Plan: Could be viral, associated with nausea and vomiting. Symptomatic care. (3) Pancreatic cancer metastasized to liver: Plan: Incidental finding of pancreatic tail lesion with multiple metastases to the liver. Appreciate oncology consultation and recommendations. 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 This prevents MRI scanning Plan Hopeful discharge to home soon Admission and Anticipated Discharge Date Admission Date: May 25, 2024 Subjective Alert and oriented. Medications ordered to treat his headache. Head CT scan was negative for metastatic disease. He has a neurostimulator implanted in his chest which prevents MRI scanning. Oncology consultation noted but report is in draft status. Apparently he will undergo biopsy procedure tomorrow, May 27. is at the bedside and understands the current situation and upcoming biopsy attempt. Review of Systems 2 Review of Systems: Constitutionalno fever or chills. He has experienced some recent weight loss ENTno blurred vision, no double vision, no epistaxis, no sore throat Respiratoryno cough, no wheezing, no shortness of breath Cardiacno palpitations, no chest pain, no syncope GInausea vomiting and diarrhea but no hematemesis melena or hematochezia GUno urinary retention, no urinary incontinence, no dysuria, no hematuria Musculoskeletalno joint pain, no muscle tenderness Skinno bruising, no rashes, no pruritus Neurono isolated weakness, no paresthesia, no weakness Psychno depression, no anxiety Physical Exam 2 Physical Exam: General-alert and oriented x3, no fever, no chills HEENT-head atraumatic and normocephalic, pupils equal and reactive to light, extraocular muscles intact Neck-no lymphadenopathy or thyromegaly, trachea midline Chest-clear to auscultation. No rales, wheezing or rhonchi Cardiac-regular rate and rhythm, normal S1 and S2 Abdomen-normal bowel sounds, no hepatosplenomegaly. Nondistended. No palpable masses Extremities-no cyanosis, clubbing, or edema Neuro-cranial nerves II through XII intact, motor and sensory function within normal limits, strength symmetrical, no focal deficits Psych-normal affect, normal mood Results & Data Results & Data Vital Signs (Past 12 Hours) Vital Signs Temp Pulse Resp BP Pulse Ox O2 Del Method 05/26/24 14:16 37.1 C 81 16 94/60 L 95 Room Air 05/26/24 08:49 103/63 05/26/24 07:46 37.1 C 68 16 94/62 L 96 Room Air Laboratory Results 05/26/24 05:59 05/26/24 05:59 PG Care Time/CCT Total # of Minutes Spent Total Time Spent with Patient: Total time spent is greater than 50% in coordination of care (as documented) at patient's floor/unit and/or counseling patient: Coding Level of Care Code 25505 SUB INP/OBS CARE 2/35MIN Diagnoses Nausea and vomiting R11.2 Diarrhea R19.7 Pancreatic cancer metastasized to liver C25.9; C78.7 Dystonia G24.9
[2024-05-26] MEDS: traMADol HCL 50 MG TABLET PO PRN (18:28)
[2024-05-26] MEDS: POLYETHYLENE (MIRALAX) 17 GM PACK PO PRN (22:11)
[2024-05-27 07:01] LABS: Hematocrit (blood only) 33.3 % (42.0-52.0); Hemoglobin 10.5 g/dl (14.0-18.0); Mean Corpuscular Hemoglobin 26.8 pg (25.0-34.0); Mean Corpuscular Hgb Conc 31.5 g/dL (32.0-36.0); Mean Corpuscular Volume 84.9 fL (80.0-100.0); Mean Platelet Volume 10.5 fL (9.4-12.4); Platelet Count 307 K/uL (130-400); RDW Coefficient of Variation 14.8 % (11.5-14.5); Red Blood Count 3.92 M/uL (4.70-6.10); White Blood Count 28.89 K/ul (4.8-10.8)
[2024-05-27 07:32] LABS: BUN Creatinine Ratio 14.5 (10-20); Calcium 8.5 mg/dl (8.6-10.3); Potassium 3.9 mmol/L (3.5-5.1)
[2024-05-27 07:37] LABS: Basophils # (auto) 0.12 K/uL (0.00-0.20); Basophils % (auto) 0.4 %; Eosinophils % (auto) 12.5 %; Immature Granulocytes # (auto) 0.48 K/uL (0.01-0.20); Immature Granulocytes % (auto) 1.7 %; Lymphocytes # (auto) 1.15 K/uL (1.20-3.40); Monocytes % (auto) 6.2 %; Neutrophils # (auto) 21.74 K/uL (1.40-6.50); Neutrophils % (auto) 75.2 %
[2024-05-27] MEDS: IRON SUCROSE 300 MG in SODIUM CHLORIDE 0.9% 250 ML IV ONE (09:29)
--- NOTE | 2024-05-27 13:40 | Ultrasound Report ---
ULTRASOUND GUIDED LIVER LESION CORE BIOPSY INDICATION: Right lobe liver lesion; pancreatic tail lesion PROCEDURE: Procedure and risks were explained. Informed consent was obtained. A final timeout was com pleted. The abdomen was prepped and draped in sterile fashion. 1% lidocaine was utilized for skin ane sthesia. Utilizing ultrasound guidance, a 17-gauge coaxial needle was advanced into the right lobe liver lesio n. Ultrasound images were obtained. An 18-gauge core biopsy needle was advanced, and 2 cores were obt ained and given to the pathologist for review. The coaxial needle was removed and Band-Aid applied. T he patient tolerated the procedure well. Vital signs will be monitored postprocedure. IMPRESSION: Right lobe liver lesion core biopsy as above. Performed, dictated, and signed by Yobani Gibbons PA-C; to be co-signed by Dr. Gary Bardales. Electronically signed by: Gary Bardales M.D. 05/27/2024 1:52 PM
--- NOTE | 2024-05-27 14:41 | Hospitalist Progress Note ---
Date of Service May 27, 2024 Assessment & Plan (1) Nausea and vomiting: Plan: Resolved. He is now eating. IV fluids have been discontinued. Antiemetics as needed (2) Diarrhea: Plan: Could be viral, associated with nausea and vomiting. Symptomatic care. (3) Pancreatic cancer metastasized to liver: Plan: Incidental finding of pancreatic tail lesion with multiple metastases to the liver. Appreciate oncology consultation and recommendations. Biopsy procedure was completed earlier today, May 27. 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 This prevents MRI scanning (5) Iron deficiency: Plan: Currently receiving parenteral iron replacement, day 2. Fecal occult blood is ordered and pending Plan Hopeful discharge to home tomorrow, May 28 Admission and Anticipated Discharge Date Admission Date: May 25, 2024 Subjective The patient was seen after his liver biopsy done today, May 27. No obvious problems or complications. Day 2 of parenteral Venofer therapy. Hopefully he can go home tomorrow, May 28, and follow-up with his PCP and eventually oncology as an outpatient. Review of Systems 2 Review of Systems: Constitutionalno fever or chills. He has experienced some recent weight loss ENTno blurred vision, no double vision, no epistaxis, no sore throat Respiratoryno cough, no wheezing, no shortness of breath Cardiacno palpitations, no chest pain, no syncope GInausea vomiting and diarrhea but no hematemesis melena or hematochezia GUno urinary retention, no urinary incontinence, no dysuria, no hematuria Musculoskeletalno joint pain, no muscle tenderness Skinno bruising, no rashes, no pruritus Neurono isolated weakness, no paresthesia, no weakness Psychno depression, no anxiety Physical Exam 2 Physical Exam: General-alert and oriented x3, no fever, no chills HEENT-head atraumatic and normocephalic, pupils equal and reactive to light, extraocular muscles intact Neck-no lymphadenopathy or thyromegaly, trachea midline Chest-clear to auscultation. No rales, wheezing or rhonchi Cardiac-regular rate and rhythm, normal S1 and S2 Abdomen-normal bowel sounds, no hepatosplenomegaly. Nondistended. No palpable masses Extremities-no cyanosis, clubbing, or edema Neuro-cranial nerves II through XII intact, motor and sensory function within normal limits, strength symmetrical, no focal deficits Psych-normal affect, normal mood Results & Data Results & Data Vital Signs (Past 12 Hours) Vital Signs Temp Pulse Resp BP Pulse Ox O2 Del Method 05/27/24 13:44 37.0 C 75 14 116/64 98 Room Air 05/27/24 11:15 37.0 C 75 14 116/70 96 Room Air 05/27/24 07:33 36.6 C 77 14 110/64 96 Room Air Laboratory Results 05/27/24 06:34 05/27/24 06:34 PG Care Time/CCT Total # of Minutes Spent Total Time Spent with Patient: Total time spent is greater than 50% in coordination of care (as documented) at patient's floor/unit and/or counseling patient: Coding Level of Care Code 97972 SUB INP/OBS CARE 2/35MIN Diagnoses Nausea and vomiting R11.2 Diarrhea R19.7 Pancreatic cancer metastasized to liver C25.9; C78.7 Dystonia G24.9 Iron deficiency E61.1
[2024-05-27] MEDS: GELATIN SPONGE 12-7MM ONE (14:58)
[2024-05-28 06:05] LABS: Hematocrit (blood only) 31.4 % (42.0-52.0); Hemoglobin 9.9 g/dl (14.0-18.0); Mean Corpuscular Hemoglobin 26.4 pg (25.0-34.0); Mean Corpuscular Hgb Conc 31.5 g/dL (32.0-36.0); Mean Corpuscular Volume 83.7 fL (80.0-100.0); Mean Platelet Volume 10.4 fL (9.4-12.4); Platelet Count 280 K/uL (130-400); RDW Standard Deviation 45.9 fL (36.4-46.3); Red Blood Count 3.75 M/uL (4.70-6.10)
[2024-05-28 06:22] LABS: BUN Creatinine Ratio 16.1 (10-20); Calcium 8.6 mg/dl (8.6-10.3); Potassium 3.4 mmol/L (3.5-5.1)
[2024-05-28 06:56] LABS: Basophils % (auto) 0.4 %; Eosinophils # (auto) 3.46 K/uL (0.00-0.50); Eosinophils % (auto) 12.6 %; Immature Granulocytes # (auto) 0.46 K/uL (0.01-0.20); Immature Granulocytes % (auto) 1.7 %; Lymphocytes # (auto) 1.12 K/uL (1.20-3.40); Lymphocytes % (auto) 4.1 %; Monocytes # (auto) 1.56 K/uL (0.11-0.59); Monocytes % (auto) 5.7 %; Neutrophils % (auto) 75.5 %; Polychromasia 1+
[2024-05-28] MEDS: IRON SUCROSE 300 MG in SODIUM CHLORIDE 0.9% 250 ML IV ONE (08:23)
--- NOTE | 2024-05-28 12:01 | Discharge Summary ---
Discharge Summary Date of Service May 28, 2024 Principal Dx & Hospital Course #1 = Principal Diagnosis (1) Nausea and vomiting: Resolved. He is now eating. IV fluids have been discontinued. Antiemetics as needed (2) Diarrhea: Could be viral, associated with nausea and vomiting. Symptomatic care. Now resolved (3) Pancreatic cancer metastasized to liver: Incidental finding of pancreatic tail lesion with multiple metastases to the liver. Appreciate oncology consultation and recommendations. Biopsy procedure was completed on May 27. 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 This prevents MRI scanning (5) Iron deficiency: Treated with intravenous iron replacement while hospitalized. He will continue an oral iron supplement daily at discharge. Fecal occult blood is negative Plan Home today, May 28. He will follow-up with oncology as soon as possible Admission HPI Per Admitting Provider 53-year-old white male who developed nausea vomiting and diarrhea several days ago. He denies hematemesis melena or hematochezia. He has lost some weight recently and has had some night sweats. Otherwise he has been stable. Incidental finding of what appears to be a pancreatic malignancy with multiple liver metastases seen on CT scan. Oncology has been consulted. CA 19-9 ordered and pending. Will treat with antiemetics and administer IV fluids until nausea, vomiting, diarrhea subside. Pain control measures ordered. He denies fever or chills Discharge Exam General-alert and oriented x3, no fever, no chills HEENT-head atraumatic and normocephalic, pupils equal and reactive to light, extraocular muscles intact Neck-no lymphadenopathy or thyromegaly, trachea midline Chest-clear to auscultation. No rales, wheezing or rhonchi Cardiac-regular rate and rhythm, normal S1 and S2 Abdomen-normal bowel sounds, no hepatosplenomegaly. Nondistended. No palpable masses Extremities-no cyanosis, clubbing, or edema Neuro-cranial nerves II through XII intact, motor and sensory function within normal limits, strength symmetrical, no focal deficits Psych-normal affect, normal mood Discharge Plan Discharge Items Patient Disposition: Home - Self-Care Reason For Visit: N/V/D Discharge Diagnosis: Suspected pancreatic cancer with liver metastases, iron deficiency Condition on Discharge: Good Activity: Resume your previous activity Non-emergency contact: Primary Care Provider and Oncologist Call non-emergency contact if: your symptoms worsen Follow-up/Referrals: Macrina Aguilera MD [Primary Care Provider] - Diet: Regular Addtl Attending Provider Instructions: Take an iron supplement daily. Follow-up with oncology as soon as possible Pending Studies at Discharge: Yes Studies:: Pathology report from liver biopsy Stand-Alone Forms: My [facility], Smoking Cessation Medications and DC Order Prescriptions: Continued propranolol 20 mg tablet 20 mg PO BID topiramate 50 mg tablet 50 mg PO BID Rx Instructions: takes with 100 mg cholecalciferol (vitamin D3) 50 mcg (2,000 unit) capsule 50 mcg PO QAM cyanocobalamin (vitamin B-12) 2,500 mcg tablet 2,500 mcg PO QAM topiramate 100 mg Tablet 100 mg PO BID Rx Instructions: takes with 50 mg citalopram 20 mg tablet 20 mg PO BID ascorbic acid (vitamin C) [Vitamin C] 500 mg Tablet 500 mg PO QAM ibuprofen 200 mg Tablet 600 mg PO BID PRN (Reason: Pain) Discharge Orders: Discharge Order (Routine); Ordered 05/28/24 Ordered By: Abner Burns Admission Data Admit Date/Time: 05/25/24 15:05 Attending Provider: Abner Burns Admit Provider: Abner Burns Primary Care Provider: Macrina Aguilera Other Providers: Wing Diaz; Abner Burns Hospital Stay Data Consultations 05/25/24 14:19 ED Decision to Admit Stat 05/25/24 17:59 Consult Oncology Routine Diagnostic Imagining Performed 05/25/24 12:37 CT abd pelvis IV con only Stat CT chest diagnostic w con Stat CT head/brain wo con Stat 05/27/24 12:55 IR biopsy liver US Routine Pending Results Patient Have Any Pending Studies at Discharge: Yes Discharge Instructions Given to Patient (Per Discharging Provider) Take an iron supplement daily. Follow-up with oncology as soon as possible Total Time Total Time Spent Total Time Spent (In Minutes): 45 minutes Coding Level of Care Code 84369 INP/OBS DISCH >30 MIN Diagnoses Nausea and vomiting R11.2 Diarrhea R19.7 Pancreatic cancer metastasized to liver C25.9; C78.7 Dystonia G24.9 Iron deficiency E61.1
== END 2024-05-28 14:14 | disposition home or self-care (01) | DRG 436 ==
LOC: SUATTDRO → ED 11:03 → 3E 15:05

== ENCOUNTER 2024-06-28 14:21 | Inpatient (IN) ==
--- OUTSIDE RECORDS SUMMARY | 2024-06-28 14:26 | External Medical Summary | Continuity of Care Document ---
Author Name Unknown Organization [facility] [address] [facility] Address [address] [facility] [place] [id number] Care Team Providers Care Threat Monitoring Analyst Name Role Phone Macrina Aguilera Primary Care Physician [phone] [id number] Date(s): 06/19/24 - 06/19/24 [facility] [address] [facility] [place] [id number] [id number] [phone] Encounter Diagnosis Essential tremor(Discharge Diagnosis) - 06/19/24 Discharge Disposition: Home or Self Care Attending Physician: ROCKY Campbell, Ramandeep Angelo Referring Physician: MD Aguilera Amy L Allergies, Adverse Reactions, Alerts Substance Criticality Severity Reaction Reaction Severity Status erythromycin Rash Active penicillins Rash Active Immunizations Given and Recorded Vaccine Date Status Refusal Reason influenza virus vaccine, inactivated 06/04/19 Give n Medications citalopram 20 mg oral tablet Start: 03/26/24 1:56:00 PM EST, 1 tab, PO, bid Start Date: 03/26/24 Status: Ordered Potassium Chloride ([id number]-[id number]-Rpz 10) 10 mEq oral tablet, extended release Start: 06/19/24 8:58:00 AM EST, 1 tab, PO, Daily Start Date: 06/19/24 Status: Ordered Topamax 100 mg oral tablet Start: 03/26/24 1:46:00 PM EST, 1 tab, PO, bid, Disp# 180 tab, Refills: 3, Take in addition to the 50mg, total 150mg twice daily, Pharmacy: [id number] Start Date: 03/26/24 Stop Date: 03/21/25 Status: Ordered topiramate 50 mg oral tablet Start: 03/26/24 1:47:00 PM EST, 1 tab, PO, bid, Disp# 180 tab, Refills: 3, Take in addition to the 100mg, total 150mg twice daily, Pharmacy: [id number] Start Date: 03/26/24 Stop Date: 03/21/25 Status: Ordered Vitamin B12 Start: 10/03/22 9:06:00 AM EDT, 2,500 mcg =, PO, Daily Start Date: 10/03/22 Status: Ordered Vitamin D3 Start: 09/15/19 8:47:00 AM EDT, 2,000 Int_Unit =, PO, Daily Start Date: 09/15/19 Status: Ordered Mental Status 06/19/24 Barriers to Learning one year None evide nt Mandatory Health Literacy Documentation Yes Health Literacy Communication Barriers N ever Primary Language [place] Problem List Condition Confirmation Course Effective Dates Status H ealth Status Informant Acute maxillary sinusitis Confirmed Active Acute stress reaction Confirmed Active Memory loss Confirmed Active Anxiety Confirmed Active Anxiety Confirmed Active Hip pain Confirmed Active OA (osteoarthritis) of hip Confirmed Active Dystonic tremor Confirmed Active Essential tremor Confirmed Active FH: BRCA2 gene positive Confirmed Active Borderline hyperlipidemia Confirmed Active Lower back pain Confirmed Active Myoclonus dystonia Confirmed Active Right shoulder pain Confirmed Active Colon cancer screening Confirmed Active Acute shoulder pain Confirmed Active Swallowing dysfunction Confirmed Active Testicular mass Confirmed Active Tremor Confirmed Active Trochanteric bursitis of right hip Confirmed Active Weight disorder Confirmed Active Diagnosis Diagnosis Type Effective Dates Health Status Cl inical Service Informant Essential tremor Discharge Diagnosis 06/19/24 Non-Specified Procedures Procedure Date Related Diagnosis Body Site Status Rotator cuff repair 1 07/2023 Com pleted DBS - Deep brain stimulation 09/21/21 Completed Unknown 2 09/11/21 Completed Procedure 3 09/05/21 Completed Colonoscopy 4, 5 10/20/20 Complete d Fluoroscopy 6 09/15/20 Completed MRI of brain and brain stem without contrast 7 09/20/17 Completed Hip X-ray 8 09/25/16 Completed Shave biopsy and cauterization of skin 07/07/13 Completed H/O vasectomy 2004 Completed Hand plates and screws right 1997 Completed Ankle fracture 1991 Completed Post-herniorraphy pain Co mpleted 1Right side 2bilateral deep brain stimulator lead placement. 3placement of screws prep for DBS surgery 4IMPRESSIONS: -DIVERTICULOSIS IN THE SIGMOID COLON. -ONE 5 MM POLYP IN THE RECTUM, REMOVED WITH A COLD SNARE. RESECTED AND RETRIEVED. ONE MM POLYP AT THE RECTO-SIGMOID COLON, REMOVED WITH A COLD SNARE. RESECTED AND RETRIEVED. AWAIT PATHOLOGY RESULTS. 5path - hyperplastic polyp, tubular adenoma 6FL VIDEO SWALLOW IMPRESSION: 1. No aspiration identiifed. 2. Mild piriform sinus residue seen throughout the examination. 3. There is moderate anterior osteophytes at C5-C6 which results in posterior impression and moderate narrowing at the upper esophagus during swallowing. 4. Please see the speech pathologistreportfor detailed findings and recommendations. 71. No acute intracranial abnormality. 2. Indeterminate mild to moderate multifocal scattered areas of T2/FLAIR prolongation within the periventricular and subcortical white matter of louise cerebral hemispheres bilaterally. These findings may reflect chronic microvascular ischemic changes or gliosis from chronic migraines among other etiologies. 3. Mild maxillary sinus disease. 81. Mild right hip osteoarthritis 2. Widening of the superior femoral head/neck junction. This raises the possibility of femoral acetabular impingement. Social History Social History Type Response Smoking Status Never smoked cigaret ken Sex Male Sex Representation Male (finding) Implantable Device List Procedure Provider Procedure Date Device Type Site Unknown Unknown 09/20/21 Unknown Unknown Device Identifier Serial Number Lot or Batch Number Manufacturing Date Expiration Date Distinct Identification Code MRI Safety Implantable Status Assigning Authority Unknown Unknown N/A Unknown 06/16/23 Unknown Unknown Active Unkn own Unknown Unknown N/A Unknown Unknown Unknown Unknown Active Unkn own Unknown Unknown [id number] Unknown 04/29/22 Unknown Unknown Active Un known Unknown Unknown N/A Unknown 08/10/23 Unknown Unknown Active Unkn own Procedure Provider Procedure Date Device Type Site Unknown Unknown 09/20/21 Non Biological Unknown Device Identifier Serial Number Lot or Batch Number Manufacturing Date Expiration Date Distinct Identification Code MRI Safety Implantable Status Assigning Authority Unknown 1 [id number] Unknown Unknown Unknown Unknown Unknown Active Unknown Procedure Provider Procedure Date Device Type Site Unknown Unknown 09/11/21 Unknown Unknown Device Identifier Serial Number Lot or Batch Number Manufacturing Date Expiration Date Distinct Identification Code MRI Safety Implantable Status Assigning Authority Unknown Unknown NA Unknown 08/15/23 Unknown Unknown Active Unkn own Unknown Unknown NA Unknown 07/06/23 Unknown Unknown Active Unkn own Unknown Unknown [id number] Unknown Unknown Unknown Unknown Active Unknown Unknown Unknown [id number] Unknown 01/17/23 Unknown Unknown Active Unknown Unknown Unknown [id number] Unknown 03/20/23 Unknown Unknown Active Unknown 1[employer] #[id number] LEAD SENSIGHT [id number] IMPLANTED 09/11/21 Patient Care team information Care Team Personnel Name: Donato, PhD, Ewa Position: Physician - Neurosurgery Member Role: Lifetime Relationship Address: Neurosurgery [address] [place] [address] [address] [place] [address] [place] Name: MD Ale, Macrina Whaley Position: Physician - Family Med Member Role: Primary Care Provider Address: [address] [place] [address], [place] [address] Care Team Related Persons Name: JERROD MATT Name: JERROD MATT
[2024-06-28] MEDS: ONDANSETRON INJ 2 MG/ML 2 ML VIAL IV STA (14:56)
[2024-06-28 15:28] LABS: Alanine Aminotransferase 15 U/L (7-52); Albumin Globulin Ratio 0.8 (0.9-2); Albumin Level 2.9 gm/dl (3.4-5.0); Alkaline Phosphatase 320 U/L (34-104); Anion Gap 10 (3-11); Aspartate Aminotransferase 10 U/L (13-39); BUN Creatinine Ratio 30.1 (10-20); Bilirubin,Total 1.8 mg/dl (0.2-1.0); Blood Urea Nitrogen 22 mg/dl (6-23); Calcium 9.3 mg/dl (8.6-10.3); Carbon Dioxide 22 mmol/L (21-32); Chloride 101 mmol/L (98-107); Globulin 3.5 gm/dl (2.5-4.0); Glucose 115 mg/dl (70-99(Fasting)); Lipase 10 U/L (11-82); Potassium 3.8 mmol/L (3.5-5.1); Sodium 133 mmol/L (136-145); Total Protein 6.4 gm/dl (6.0-8.3)
[2024-06-28 15:37] LABS: Mean Corpuscular Hemoglobin 25.9 pg (25.0-34.0); Mean Corpuscular Hgb Conc 30.1 g/dL (32.0-36.0); Mean Corpuscular Volume 86.1 fL (80.0-100.0); Mean Platelet Volume 11.5 fL (9.4-12.4); Platelet Count 166 K/uL (130-400); RDW Coefficient of Variation 19.3 % (11.5-14.5); RDW Standard Deviation 60.9 fL (36.4-46.3); Red Blood Count 2.66 M/uL (4.70-6.10); White Blood Count 12.72 K/ul (4.8-10.8)
[2024-06-28 15:46] LABS: Influenza A virus by PCR Negative (Neg); Influenza B virus by PCR Negative (Neg); RSV by PCR Negative (Neg); SARS CoV2 RNA(COVID-19) Ceph NEGATIVE (Negative)
[2024-06-28 15:48] LABS: ALC (manual) 0.64 K/uL (1.2-3.4); ANC (manual) 10.18 K/uL (1.4-6.5); Dohle Bodies 1+; Eosinophils # (manual) 1.53 K/uL (0-0.50); Eosinophils % (manual) 12 %; Hematocrit (blood only) 22.9 % (42.0-52.0); Hemoglobin 6.9 g/dl (14.0-18.0); Lymphocytes # (manual) 0.64 K/uL (1.2-3.4); Lymphocytes % (manual) 5 %; Monocytes # (manual) 0.38 K/uL (0.11-0.59); Monocytes % (manual) 3 %; Neutrophils # (manual) 10.18 K/uL (1.40-6.50); Neutrophils % (manual) 80 %; Toxic Vacuolation 1+
[2024-06-28] MEDS ORDERED: SODIUM CHLORIDE 0.9% 100 ML IV PRN ×4 (16:02→23:51)
[2024-06-28] MEDS ORDERED: SODIUM CHLORIDE 0.9% 50 ML IV PRN ×4 (16:02→23:51)
[2024-06-28] MEDS: SODIUM CHLORIDE 0.9% 500 ML IV ONE (16:39)
--- NOTE | 2024-06-28 17:49 | History & Physical Report ---
Date of Service June 28, 2024 Assessment & Plan (1) Symptomatic anemia: Plan: Suspected secondary to chemotherapy Fecal occult blood Iron studies, B12, folate with a.m. labs Transfusion threshold < 7 overnight, can transfuse if < 9 and symptomatic during day time (2) Pancreatic cancer metastasized to liver: Plan: Unclear chemotherapy regimen on admission but just started this on Saturday Plan VTE prophylaxis - chemical deferred in the setting of anemia consider starting if hemoglobin stable Diet - regular Disposition - admit to [facility] Admission and Anticipated Discharge Date Admission Date: June 28, 2024 History of Present Illness Chief Complaint: Shortness of breath Primary Care Provider: Macrina Aguilera MD Javed Ding is a 54-year-old male with metastatic pancreatic cancer who presents to the ER with shortness of breath and dizziness. He started chemotherapy for pancreatic cancer on Saturday although unknown regimen at time of admission. He has been extremely fatigued with no energy, sleeping much of the time, shortness of breath with presyncope since his treatment. He called his oncologist and given prior anemia was suspected to be more anemic and was advised to go to the ER for possible transfusion. He denies any melena, hematochezia, hematuria, hematemesis, hemoptysis or significant bruising. No chest pain. He has also had 1+ pitting edema since the chemotherapy started. In the ER hemoglobin is 6.9 from previous value of 8.9 on June 19 and he is currently being transfused 1 unit when seen. Allergies Allergy/AdvReac Type Severity Reaction Status Date / Time erythromycin base Allergy Unknown Rash Verified 06/18/24 10:42 Penicillins Allergy Unknown Rash Verified 06/18/24 10:42 Home Medications Medication Instructions Recorded Confirmed Type cholecalciferol (vitamin D3) 50 50 mcg PO QAM 06/28/23 06/28/24 History mcg (2,000 unit) capsule citalopram 20 mg tablet 20 mg PO BID 06/28/23 06/28/24 History cyanocobalamin (vitamin B-12) 2,500 mcg PO QAM 06/28/23 06/28/24 History 2,500 mcg tablet ascorbic acid (vitamin C) 500 mg 500 mg PO QAM 07/09/23 06/28/24 History tablet (Vitamin C) melatonin 3 mg tablet 3 mg PO HS Sleep 06/16/24 06/28/24 History potassium chloride 10 mEq 10 meq PO QAM 06/16/24 06/28/24 History capsule,extended release topiramate 100 mg tablet (Topamax) 100 mg PO BID 06/18/24 06/28/24 History topiramate 50 mg tablet (Topamax) 50 mg PO BID 06/18/24 06/28/24 History oxycodone-acetaminophen 5 mg-325 1 tab PO Q6H 06/28/24 06/28/24 History mg tablet Past Med/Surg History Problem List Symptomatic anemia Iron deficiency Liver lesion Pancreatic cancer metastasized to liver Trochanteric bursitis, right hip Stiff neck Cervical arthritis Encounter for pre-operative examination Medical History 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 [facility]. 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 Obesity Dysphagia Chronic coughing with swallowing and occasional choking -pt attributes to cervical spine osteoarthritis Spinal osteoarthritis BRCA gene positive Essential tremor Myoclonus dystonia Following with [facility] Neurology tremors, sometimes stutters with and pt reports he can go off into a stare but can understand what you are saying. Surgical History Port-A-Cath in place (06/18/24) Insertion Access Port with Fluoroscopy Right Internal Jugular Vein(Right) - Nils Chung, History of arthroscopic surgery of shoulder (07/2023) rotator cuff, bicep repair - right History of vasectomy History of wisdom tooth extraction History of colonoscopy History of hand surgery Right History of foot surgery Left S/P deep brain stimulator placement Pt instructed to bring remote DOS Social History Smoking Status: Never smoker Tobacco Type: Cigarettes Second Hand Exposure: Yes (hx - father smoked, ex smoked); Do You Dip or Chew Tobacco: No (hx quit in high school); Hx Alcohol Use: Yes (hx social , don't drink anymore) Hx Substance Use: No Preferred Language: Bermudian Communication Ability: Effective Housekeeping Aid Required: No Beliefs That Will Affect Care: None Current Living Situation: Spouse Feels Safe at Home: Yes Assistive Devices: Cane and Other Review of Systems Review of Systems: All systems reviewed & are unremarkable except as noted in HPI & below Physical Exam Constitutional: WD/WN, vitals as above Respiratory: normal respiratory effort, lungs clear to auscultation Cardiovascular: RRR, no murmur, no edema Gastrointestinal (Abdomen): Percussion/Palpation: + abdomen tender (RUQ pain (normal for patient)) and abdomen soft; no guarding and abdomen not rigid Skin: + pallor Neurologic: moves all extremities and awake; not confused Psychiatric: A+Ox3, euthymic affect Results & Data Results & Data Vital Signs (Past 12 Hours) Vital Signs Temp Pulse Pulse Resp BP BP Pulse Ox 06/28/24 17:23 36.8 C 80 18 100/58 L 97 06/28/24 16:21 82 18 106/61 95 06/28/24 16:04 88 06/28/24 14:24 36.3 C L 115 H 19 98/57 L 98 O2 Del Method 06/28/24 17:23 06/28/24 16:21 Room Air 06/28/24 16:04 06/28/24 14:24 Room Air Laboratory Results Abnormal lab results 06/28/24 06/28/24 06/28/24 Range/Units 14:52 15:00 23:04 WBC 12.72 H (4.8-10.8) K/ul RBC 2.66 L (4.70-6.10) M/uL Hgb 6.9 L* 6.7 L* (14.0-18.0) g/dl Hct 22.9 L 22.1 L (42.0-52.0) % MCHC 30.1 L (32.0-36.0) g/dL RDW Std Deviation 60.9 H (36.4-46.3) fL RDW Coeff of Sd 19.3 H (11.5-14.5) % Neutrophils # (Manual) 10.18 H (1.40-6.50) K/uL Total Absolute Neuts 10.18 H (1.4-6.5) K/uL Lymphocytes # (Manual) 0.64 L (1.2-3.4) K/uL Total Abs Lymphocytes 0.64 L (1.2-3.4) K/uL Eosinophils # (Manual) 1.53 H (0-0.50) K/uL Sodium 133 L (136-145) mmol/L BUN/Creatinine Ratio 30.1 H (10-20) Glucose 115 H (70-99(Fasting)) mg/dl Total Bilirubin 1.8 H (0.2-1.0) mg/dl AST 10 L (13-39) U/L Alkaline Phosphatase 320 H (34-104) U/L Albumin 2.9 L (3.4-5.0) gm/dl Albumin/Globulin Ratio 0.8 L (0.9-2) Lipase 10 L (11-82) U/L Crossmatch See Detail Medications Administered ER Medications Given: Ondansetron 4mg IV Transfuse 1 units packed RBCs ECG Rate (beats per minute): 92 Rhythm: normal sinus Findings: + other (Nonspecific intraventricular conduction block) Comparison ECG Date: from (May 25, 2024) Change: the following changes noted (QRS duration increased, T wave flattening in anterior lateral leads) Code Status & VTE Plan Code Status Full VTE Prophylaxis Plan VTE Prophylaxis will be ordered: Yes PG Care Time/CCT Total # of Minutes Spent Total Time Spent with Patient: Total time spent is greater than 50% in coordination of care (as documented) at patient's floor/unit and/or counseling patient: Coding Level of Care Code 60276 INT INP/OBS CARE 3/75MIN Diagnoses Symptomatic anemia D64.9 Pancreatic cancer metastasized to liver C25.9; C78.7
--- NOTE | 2024-06-28 18:52 | Emergency Department Note ---
ED Provider Note CHIEF COMPLAINT: Fatigue, nausea, weakness HISTORY OF PRESENT ILLNESS: This 54-year-old male patient past medical history of pancreatic cancer with recent first chemo treatment this week presents to the emergency department with complaints of shortness of breath with exertion, fatigue. mentions that they were advised this would be a very difficult week after his induction chemotherapy, but she called the oncology nurse today who referred her to the emergency department thinking that he may be dehydrated. states he has had great difficulty with dehydration throughout the process. He has not been eating much more than toast. She states he did have a few bites of dinner last night. She denies any fevers, vomiting or diarrhea. REVIEW OF SYSTEMS: A review of systems was performed with positives and pertinent negatives listed in the history of present illness. 10 systems were reviewed and are otherwise negative. ALLERGIES: see below MEDICATIONS: see below PMH: see below SOCIAL HISTORY: see below DDx: Fatigue, nausea, weakness, dehydration, infectious etiology among others. PHYSICAL EXAM: Vital signs reviewed. General: Chronically ill-appearing 54-year-old male, in no significant distress. HEENT: No scleral icterus, conjunctiva are pale, PERRLA, neck supple. Dry mucous membranes. Cardiovascular: Regular rate and rhythm, no extra sounds. Pulmonary: Clear to auscultation bilaterally, normal work of breathing. Abdomen: Soft, obese, nondistended, minimal tenderness to palpation, nondistended, positive bowel sounds. Musculoskeletal: Atraumatic, no peripheral edema. Neurologic: Patient awake alert and oriented x 3, speech is clear Skin: Warm, dry, no rash EMERGENCY DEPARTMENT COURSE/MDM: [] MONITORING: An order for cardiac monitoring was placed and the patient is noted to be in a sinus rhythm at 88 beats per minute RADIOLOGY: chest x-ray to my interpretation reveals no focal lung consolidation or failure. EKG: to my interpretation reveals a normal sinus rhythm at 92 bpm. QTc of 424 nonspecific intraventricular conduction delay, normal ST segments. Poor quality baseline for interpretation. DISPOSITION:Admission I have personally spent greater than 45 minutes of critical care time in the direct management of this patient. This includes bedside care, interpretation of diagnostic studies, and testing, discussion with consultants, patient, and family members, and other required patient management activities. This 45 minutes is in excess of all separately billable procedures. 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 [facility]. 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 Obesity Dysphagia Chronic coughing with swallowing and occasional choking -pt attributes to cervical spine osteoarthritis Spinal osteoarthritis BRCA gene positive Essential tremor Myoclonus dystonia Following with [facility] [place] Neurology tremors, sometimes stutters with and pt reports he can go off into a stare but can understand what you are saying. Surgical History Port-A-Cath in place (06/18/24) Insertion Access Port with Fluoroscopy Right Internal Jugular Vein(Right) - Nils Chung, DO History of arthroscopic surgery of shoulder (07/2023) rotator cuff, bicep repair - right History of vasectomy History of wisdom tooth extraction History of colonoscopy History of hand surgery Right History of foot surgery Left S/P deep brain stimulator placement Pt instructed to bring remote DOS Social History Smoking Status: Never smoker Tobacco Type: Cigarettes Second Hand Exposure: Yes (hx - father smoked, ex smoked); Do You Dip or Chew Tobacco: No (hx quit in high school); Hx Alcohol Use: Yes (hx social , don't drink anymore) Hx Substance Use: No Preferred Language: Bengali Communication Ability: Effective Apparel Patternmaker Required: No Beliefs That Will Affect Care: None Current Living Situation: Spouse Feels Safe at Home: Yes Assistive Devices: Cane and Other Allergies Allergies Allergy/AdvReac Type Severity Reaction Status Date / Time erythromycin base Allergy Unknown Rash Verified 06/18/24 10:42 Penicillins Allergy Unknown Rash Verified 06/18/24 10:42 Home Meds Home Medications Medication Instructions Recorded Confirmed cholecalciferol (vitamin D3) 50 50 mcg PO QAM 06/28/23 06/28/24 mcg (2,000 unit) capsule citalopram 20 mg tablet 20 mg PO BID 06/28/23 06/28/24 cyanocobalamin (vitamin B-12) 2,500 mcg PO QAM 06/28/23 06/28/24 2,500 mcg tablet ascorbic acid (vitamin C) 500 mg 500 mg PO QAM 07/09/23 06/28/24 tablet (Vitamin C) melatonin 3 mg tablet 3 mg PO HS Sleep 06/16/24 06/28/24 potassium chloride 10 mEq 10 meq PO QAM 06/16/24 06/28/24 capsule,extended release topiramate 100 mg tablet (Topamax) 100 mg PO BID 06/18/24 06/28/24 topiramate 50 mg tablet (Topamax) 50 mg PO BID 06/18/24 06/28/24 oxycodone-acetaminophen 5 mg-325 1 tab PO Q6H 06/28/24 06/28/24 mg tablet Results & Data (ED) Vital Signs Vital Signs - 24 hr 06/28/24 14:24 06/28/24 16:04 06/28/24 16:21 Temperature 36.3 C L Temperature Source Temporal Artery Scan Pulse Rate 115 H 88 Pulse Rate [Apical] 82 Respiratory Rate 19 18 Respiratory Effort / Characteristics Non-Labored Respiratory Depth Normal Respiratory Pattern Regular Blood Pressure 98/57 L Blood Pressure [Left Arm] 106/61 Blood Pressure Mean 70 Blood Pressure Mean [Left Arm] 76 Blood Pressure Position [Left Arm] Lying Pulse Oximetry 98 95 Oxygen Delivery Method Room Air Room Air Sepsis Recent Fever Within 48 Hours No Sepsis New/Unexplained Change in Mental Status N/A Sepsis Action Taken by Nursing Physician Notified 06/28/24 17:23 06/28/24 17:47 06/28/24 18:00 Temperature 36.8 C 36.7 C 36.5 C Temperature Source Oral Oral Oral Pulse Rate 80 88 Pulse Rate [Apical] 82 Respiratory Rate 18 18 18 Respiratory Effort / Characteristics Non-Labored Respiratory Depth Normal Respiratory Pattern Regular Blood Pressure 100/58 L 112/64 Blood Pressure [Left Arm] 106/61 Blood Pressure Mean 72 80 Blood Pressure Mean [Left Arm] 76 Blood Pressure Position [Left Arm] Lying Pulse Oximetry 97 93 96 Oxygen Delivery Method Room Air Sepsis Recent Fever Within 48 Hours Sepsis New/Unexplained Change in Mental Status Sepsis Action Taken by Nursing 06/28/24 18:02 06/28/24 18:32 Temperature 36 C L 36.5 C Temperature Source Oral Oral Pulse Rate 82 80 Pulse Rate [Apical] Respiratory Rate 18 18 Respiratory Effort / Characteristics Respiratory Depth Respiratory Pattern Blood Pressure 108/61 106/64 Blood Pressure [Left Arm] Blood Pressure Mean 76 78 Blood Pressure Mean [Left Arm] Blood Pressure Position [Left Arm] Pulse Oximetry 94 96 Oxygen Delivery Method Sepsis Recent Fever Within 48 Hours Sepsis New/Unexplained Change in Mental Status Sepsis Action Taken by [facility] Medications Current Medication List: was personally reviewed by me Laboratory Data Attestation: I reviewed the patient's lab results. 06/28/24 14:52 06/28/24 14:52 Lab Results 06/28/24 06/28/24 06/28/24 Range/Units 14:52 15:00 16:22 WBC 12.72 H (4.8-10.8) K/ul RBC 2.66 L (4.70-6.10) M/uL Hgb 6.9 L* (14.0-18.0) g/dl Hct 22.9 L (42.0-52.0) % MCV 86.1 (80.0-100.0) fL MCH 25.9 (25.0-34.0) pg MCHC 30.1 L (32.0-36.0) g/dL RDW Std Deviation 60.9 H (36.4-46.3) fL RDW Coeff of Sd 19.3 H (11.5-14.5) % Plt Count 166 (130-400) K/uL MPV 11.5 (9.4-12.4) fL Neutrophils % (Manual) 80 % Lymphocytes % (Manual) 5 % Monocytes % (Manual) 3 % Eosinophils % (Manual) 12 % Neutrophils # (Manual) 10.18 H (1.40-6.50) K/uL Total Absolute Neuts 10.18 H (1.4-6.5) K/uL Lymphocytes # (Manual) 0.64 L (1.2-3.4) K/uL Total Abs Lymphocytes 0.64 L (1.2-3.4) K/uL Monocytes # (Manual) 0.38 (0.11-0.59) K/uL Eosinophils # (Manual) 1.53 H (0-0.50) K/uL Toxic Vacuolation 1+ Dohle Bodies 1+ Sodium 133 L (136-145) mmol/L Potassium 3.8 (3.5-5.1) mmol/L Chloride 101 (98-107) mmol/L Carbon Dioxide 22 (21-32) mmol/L Anion Gap 10 (3-11) BUN 22 (6-23) mg/dl Creatinine 0.73 (0.6-1.4) mg/dl Est Cr Clr Drug Dosing Not Reportable eGFR 107.45 BUN/Creatinine Ratio 30.1 H (10-20) Glucose 115 H (70-99(Fasting)) mg/dl Calcium 9.3 (8.6-10.3) mg/dl Total Bilirubin 1.8 H (0.2-1.0) mg/dl AST 10 L (13-39) U/L ALT 15 (7-52) U/L Alkaline Phosphatase 320 H (34-104) U/L Total Protein 6.4 (6.0-8.3) gm/dl Albumin 2.9 L (3.4-5.0) gm/dl Globulin 3.5 (2.5-4.0) gm/dl Albumin/Globulin Ratio 0.8 L (0.9-2) Lipase 10 L (11-82) U/L SARS-CoV-2 (PCR) NEGATIVE (Negative) Influenza Type A (PCR) Negative (Neg) Influenza Type B (PCR) Negative (Neg) RSV (RT-PCR) Negative (Neg) Blood Type A Negative Blood Type Recheck A Negative Antibody Screen NEGATIVE Crossmatch See Detail Administered Medications Discontinued Medications Sodium Chloride (Nss) 500 mls @ 999 mls/hr IV .Q31M ONE Stop: 06/28/24 16:35 Last Admin: 06/28/24 16:39 Dose: 999 mls/hr Documented By: MAURO Ondansetron HCl (Ondansetron Inj 2 Mg/Ml 2 Ml Vial) 4 mg IV NOW STA Stop: 06/28/24 14:36 Last Admin: 06/28/24 14:56 Dose: 4 mg Documented By: BERNABE Discharge Plan Visit Data Chief Complaint: Referred by Doctor Stated Complaint: SOB, LOW ON FLUIDS ED Provider: Vivian Guzman Forms Stand Alone Forms: [facility] [employer] Prescriptions Prescriptions: No Action cholecalciferol (vitamin D3) 50 mcg (2,000 unit) capsule 50 mcg PO QAM cyanocobalamin (vitamin B-12) 2,500 mcg tablet 2,500 mcg PO QAM citalopram 20 mg tablet 20 mg PO BID ascorbic acid (vitamin C) [Vitamin C] 500 mg Tablet 500 mg PO QAM melatonin 3 mg Tablet 3 mg PO HS potassium chloride 10 mEq Capsule, Extended Release 10 meq PO QAM topiramate [Topamax] 100 mg Tablet 100 mg PO BID topiramate [Topamax] 50 mg Tablet 50 mg PO BID oxycodone-acetaminophen 5-325 mg tablet 1 tab PO Q6H Referrals Referrals: Macrina Aguilera MD [Primary Care Provider] -
[2024-06-28] MEDS: TOPIRAMATE 100 MG TAB PO SCH (21:52)
[2024-06-28] MEDS: CITALOPRAM 20 MG TAB PO SCH (21:52)
[2024-06-28] MEDS: TOPIRAMATE 50 MG TAB PO SCH (21:52)
[2024-06-28] MEDS: MELATONIN 3 MG TAB PO SCH (21:52)
[2024-06-28] MEDS: Patient's HEIGHT &/or WEIGHT Needed STA (22:46)
[2024-06-28 23:50] LABS: Hematocrit (blood only) 22.1 % (42.0-52.0); Hemoglobin 6.7 g/dl (14.0-18.0)
--- NOTE | 2024-06-29 01:39 | XRay Report ---
EXAM: XR chest 1V portable CLINICAL HISTORY: Shortness of breath. TECHNIQUE: An X-ray image of the chest is obtained in AP projection. COMPARISON: Radiograph dated 06/18/2024. FINDINGS: A right central venous catheter is seen in situ with its distal tip at the cavoatrial junction. Pulmonary Parenchyma: Prominent perihilar broncho vascular markings. No evidence of consolidation, collapse, or focal opacities. No pulmonary nodules are identified. No evidence of pleural effusion or pleural thickening. Heart and Mediastinum: Heart size and shape are normal. No mediastinal widening or masses. No hilar or mediastinal lymphadenopathy. Bony Thorax: The bony thorax appears intact without fractures or deformities. Soft Tissues: Soft tissues overlying the chest wall are unremarkable. A device is seen projected over the left hemithorax, unchanged in position. IMPRESSION: 1. The prominence of perihilar broncho-vascular markings is probably due to pulmonary vascular congestion(stable). 2. No evidence of consolidation, collapse, or pleural effusion(stable). 3. A right central venous catheter is seen in situ with its distal tip at the cavoatrial junction, unchanged. 4. A device is seen projected over the left hemithorax, unchanged in position. Electronically signed by Lisa Taylor 06-29-2024 01:39 AM
[2024-06-29 01:49] LABS: INR 1.7 (0.9-1.1); Partial Thromboplastin Ratio 1.3; Partial Thromboplastin Time 34 Seconds (21-31); Prothrombin Time 17.7 Seconds (9.0-12.0)
[2024-06-29 05:18] LABS: Appearance Urine Clear (Clear); Bacteria Urine Automated None Seen (None Seen); Bilirubin Urine 1+ (Negative); Blood Urine Negative (Negative); Cast Urine Automated 0-2 /lpf (0-2); Color Urine Orange; Epithelial Cell Urine Auto 0-2 /hpf (0-2); Glucose Urine UA Negative (Negative); Ketones Urine Trace (Negative); Leukocyte Esterase Urine Trace (Negative); Nitrite Urine Positive (Negative); Protein Urine Trace (Negative); RBC Urine Automated 0-2 /hpf (0-2); Specific Gravity Urine 1.021 (1.000-1.030); Urobilinogen Urine Positive (Negative); WBC Urine Automated 0-5 /hpf (0-5)
[2024-06-29] MEDS: CHOLECALCIFEROL 25 MCG (1000 UNITS) TAB PO SCH (07:48)
[2024-06-29 08:07] LABS: Hematocrit (blood only) 20.4 % (42.0-52.0); Hemoglobin 6.4 g/dl (14.0-18.0); Mean Corpuscular Hemoglobin 26.9 pg (25.0-34.0); Mean Corpuscular Hgb Conc 31.4 g/dL (32.0-36.0); Mean Corpuscular Volume 85.7 fL (80.0-100.0); Mean Platelet Volume 11.4 fL (9.4-12.4); Platelet Count 102 K/uL (130-400); RDW Standard Deviation 55.6 fL (36.4-46.3); Red Blood Count 2.38 M/uL (4.70-6.10); White Blood Count 6.96 K/ul (4.8-10.8)
[2024-06-29] MEDS ORDERED: SODIUM CHLORIDE 0.9% 100 ML IV PRN (08:12)
[2024-06-29] MEDS ORDERED: SODIUM CHLORIDE 0.9% 50 ML IV PRN (08:12)
[2024-06-29 08:26] LABS: Alanine Aminotransferase 10 U/L (7-52); Albumin Globulin Ratio 0.9 (0.9-2); Albumin Level 2.3 gm/dl (3.4-5.0); Alkaline Phosphatase 238 U/L (34-104); Anion Gap 8 (3-11); Aspartate Aminotransferase 9 U/L (13-39); Bilirubin,Total 1.6 mg/dl (0.2-1.0); Blood Urea Nitrogen 18 mg/dl (6-23); Calcium 8.7 mg/dl (8.6-10.3); Carbon Dioxide 23 mmol/L (21-32); Chloride 104 mmol/L (98-107); Creatinine Clr Calc Pharmacy 150.4 ml/min; Globulin 2.7 gm/dl (2.5-4.0); Glucose 85 mg/dl (70-99(Fasting)); Iron 19 mcg/dl (35-175); Potassium 3.4 mmol/L (3.5-5.1); Sodium 135 mmol/L (136-145); Transferrin < 95 mg/dl (200-360)
[2024-06-29 08:52] LABS: Folate (Folic Acid),Ser orPlas > 22.30 ng/ml (>5.38)
[2024-06-29 08:53] LABS: Vitamin B12 > 1500 pg/ml (180-914)
[2024-06-29] MEDS: POTASSIUM CHLORIDE 10 MEQ TABCR PO SCH (09:26)
[2024-06-29] MEDS: POTASSIUM CHLORIDE CRTAB 20 MEQ TABCR PO STA (09:26)
[2024-06-29] MEDS: oxyCODONE/ACETAMINOPHEN 5mg/325mg TAB PO PRN (10:23)
[2024-06-29] MEDS ORDERED: ONDANSETRON INJ 2 MG/ML 2 ML VIAL IV PRN (11:43)
--- NOTE | 2024-06-29 12:31 | Oncology Consultation ---
Date of Consultation June 29, 2024 Assessment & Plan (1) Symptomatic anemia: Plan -Pleasant gentleman with metastatic pancreatic cancer status post 1 cycle of chemotherapy with NALIRIFOX who presented with symptomatic anemia. He is status post 3 units PRBC transfusion. Based on labs, he likely has anemia of chronic disease/inflammation secondary to malignancy as well as due to recent chemotherapy treatment. -Agree with PRBC transfusion to maintain hemoglobin above 7.5 -Patient did not receive G-CSF due to severe leukocytosis secondary to malignancy which has now resolved following cycle 1 of chemotherapy. If he develops neutropenia, recommend G-CSF with filgrastim for 480 mcg daily x 2 to 3 days or until ANC is above 1000. -Plan to start appetite stimulant with mirtazapine 15 mg p.o. nightly Thank you for this consult. Will follow peripherally while patient is in the hospital. Please feel free to call if you have any further questions. History of Present Illness Reason for Consultation: anemia, metastatic pancreatic cancer Attending Physician: Isha Castellano MD History of Present Illness Mr. Ding is a very pleasant 54-year-old gentleman with history of BRCA2 mutation who was recently diagnosed with metastatic pancreatic cancer and received cycle 1 of NALIRIFOX (liposomal irinotecan, oxaliplatin, leucovorin and fluorouracil) on 06/22/2024. He presented to the ER about a week after receiving cycle 1 of chemotherapy with severe fatigue. Labs revealed severe anemia with hemoglobin of 6.4, hematocrit of 20.4. Hemoccult was negative. Anemia labs suggestive of anemia of chronic disease/inflammation. He has so far received 3 units PRBC transfusion with improvement in energy level. Complains of diarrhea which started earlier today likely due to Dulcolax which she had taken for constipation over the weekend. Allergies Allergy/AdvReac Type Severity Reaction Status Date / Time erythromycin base Allergy Unknown Rash Verified 06/18/24 10:42 Penicillins Allergy Unknown Rash Verified 06/18/24 10:42 Home Medications Medication Instructions Recorded Confirmed Type cholecalciferol (vitamin D3) 50 50 mcg PO QAM 06/28/23 06/28/24 History mcg (2,000 unit) capsule citalopram 20 mg tablet 20 mg PO BID 06/28/23 06/28/24 History cyanocobalamin (vitamin B-12) 2,500 mcg PO QAM 06/28/23 06/28/24 History 2,500 mcg tablet ascorbic acid (vitamin C) 500 mg 500 mg PO QAM 07/09/23 06/28/24 History tablet (Vitamin C) melatonin 3 mg tablet 3 mg PO HS Sleep 06/16/24 06/28/24 History potassium chloride 10 mEq 10 meq PO QAM 06/16/24 06/28/24 History capsule,extended release topiramate 100 mg tablet (Topamax) 100 mg PO BID 06/18/24 06/28/24 History topiramate 50 mg tablet (Topamax) 50 mg PO BID 06/18/24 06/28/24 History oxycodone-acetaminophen 5 mg-325 1 tab PO Q6H 06/28/24 06/28/24 History mg tablet Patient History Medical History 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 [facility]. 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 Obesity Dysphagia Chronic coughing with swallowing and occasional choking -pt attributes to cervical spine osteoarthritis Spinal osteoarthritis BRCA gene positive Essential tremor Myoclonus dystonia Following with [facility] Neurology tremors, sometimes stutters with and pt reports he can go off into a stare but can understand what you are saying. Surgical History Port-A-Cath in place (06/18/24) Insertion Access Port with Fluoroscopy Right Internal Jugular Vein(Right) - Nils Cuhng DO History of arthroscopic surgery of shoulder (07/2023) rotator cuff, bicep repair - right History of vasectomy History of wisdom tooth extraction History of colonoscopy History of hand surgery Right History of foot surgery Left S/P deep brain stimulator placement Pt instructed to bring remote DOS Social History Smoking Status: Never smoker Tobacco Type: Cigarettes Second Hand Exposure: No; Do You Dip or Chew Tobacco: No; Tobacco Cessation Education Requested by Patient: No Hx Alcohol Use: No Hx Substance Use: No Preferred Language: Lao Communication Ability: Effective Grocery Sacker Required: No Beliefs That Will Affect Care: None Current Living Situation: Spouse Other Information That Helps Us Care for You: No Feels Safe at Home: Yes Safety Concerns: Feels Safe At This Time Assistive Devices: Cane Results & Data Vital Signs (Past 12 Hours) Vital Signs Temp Pulse Pulse Pulse Resp BP BP 06/29/24 12:02 88 18 102/63 06/29/24 11:02 36.4 C L 88 16 89/53 L 06/29/24 10:32 95 H 18 104/64 06/29/24 10:17 90 18 100/64 06/29/24 09:57 36.4 C L 86 18 97/59 L 06/29/24 07:18 36.4 C L 85 16 109/62 06/29/24 05:15 36.5 C 84 16 102/62 06/29/24 03:36 35.9 C L 84 18 103/63 06/29/24 02:19 36.4 C L 83 16 104/63 06/29/24 01:15 36.5 C 82 16 99/61 L 06/29/24 00:38 36.4 C L 84 16 108/65 Pulse Ox O2 Del Method 06/29/24 12:02 95 06/29/24 11:02 94 06/29/24 10:32 96 06/29/24 10:17 96 06/29/24 09:57 95 06/29/24 07:18 95 Room Air 06/29/24 05:15 95 Room Air 06/29/24 03:36 95 Room Air 06/29/24 02:19 97 06/29/24 01:15 96 Room Air 06/29/24 00:38 95 Room Air
[2024-06-29] MEDS: HEPARIN 100 UNIT/ML 5ML FLUSH FLUSH PRN (14:31)
--- NOTE | 2024-06-29 14:39 | Hospitalist Progress Note ---
Date of Service June 29, 2024 Assessment & Plan (1) Symptomatic anemia: (2) Pancreatic cancer metastasized to liver: Plan Stanley is a 54-year-old male with a past medical history of essential tremor with metastatic pancreatic cancer who presents to the ER with complaints of fatigue and fall. Did not hit his head, no loss of consciousness. Found to be anemic at 6.9, admitted for blood transfusions and further workup. #Symptomatic anemia Suspected secondary to chemotherapy, first dose 06/22/2024 Fecal occult blood negative. B12 and folate significantly elevated. Iron studies with low iron and low transferrin but elevated ferritinsuspect this is acute phase reactant with recent chemotherapy. Received 2 units PRBCs, hemoglobin 6.4 this morning. Plan for additional 1 unit PRBCs today Posttransfusion H&H Heme/onc consulted #Pancreatic cancer metastasized to the liver Follows with CCP, Dr. Rashid Unclear his current regimen at this time #essential tremorcontinue Celexa and Topamax Dispo: Continued inpatient stay DVT prophylaxis: Chemical held in the setting of acute anemia Family updated at bedside 06/29 Admission and Anticipated Discharge Date Admission Date: June 28, 2024 Subjective patient seen lying in bed, present at bedside. states that he has been having some brain fog this morning and wondering if it is a side effect from chemo. Reports a fall at home when going down the stairs as well as abdominal pain and fatigue, contacted on-call CCP provider who recommended admission for transfusion. states that they were told he may need transfusions during this chemotherapy regimen as it is very aggressive. She is unsure the name of the chemotherapy that he is getting but he had his first dose on Saturday and then had a home infusion that continued until Saturday. Stanley denies any signs of GI bleeding, melena, black tarry stools, hematochezia. Currently he is reporting a poor appetite did have an episode of emesis this morning after eating breakfast but thinks he ate too much. Also reporting a headache Review of Systems Review of Systems: All systems reviewed & are unremarkable except as noted in Subjective Physical Exam Physical Exam: General: NAD, VS as above, lying in bed, appears ill Resp: normal respiratory effort, lungs clear to auscultation CV: RRR, no murmur, Abd: normal bowel sounds, non tender, soft Extremities: Moves all extremities, no edema Neuro: A&O x3, Results & Data Results & Data Vital Signs (Past 12 Hours) Vital Signs Temp Pulse Pulse Pulse Resp BP BP 06/29/24 12:02 88 18 102/63 06/29/24 11:02 97.5 F L 88 16 89/53 L 06/29/24 10:32 95 H 18 104/64 06/29/24 10:17 90 18 100/64 06/29/24 09:57 97.5 F L 86 18 97/59 L 06/29/24 07:18 97.5 F L 85 16 109/62 06/29/24 05:15 97.7 F 84 16 102/62 06/29/24 03:36 96.6 F L 84 18 103/63 Pulse Ox O2 Del Method 06/29/24 12:02 95 06/29/24 11:02 94 06/29/24 10:32 96 06/29/24 10:17 96 06/29/24 09:57 95 06/29/24 07:18 95 Room Air 06/29/24 05:15 95 Room Air 06/29/24 03:36 95 Room Air Laboratory Results CBC, chemistry, coagulation studies reviewed PG Care Time/CCT Total # of Minutes Spent Total Time Spent with Patient: Total time spent is greater than 50% in coordination of care (as documented) at patient's floor/unit and/or counseling patient: Coding Level of Care Code 22716 SUB INP/OBS CARE 3/50MIN Diagnoses Symptomatic anemia D64.9 Pancreatic cancer metastasized to liver C25.9; C78.7
[2024-06-29 15:21] LABS: Hematocrit (blood only) 23.6 % (42.0-52.0); Hemoglobin 7.4 g/dl (14.0-18.0)
[2024-06-29] MEDS: ACETAMINOPHEN 500 MG TAB PO PRN (19:39)
[2024-06-29] MEDS: oxyCODONE HCL IR 5 MG TAB (IMMEDIATE RELEASE) PO PRN (19:39)
[2024-06-29 19:44] LABS: Reticulocyte % 1.38 % (0.50-2.00); Reticulocytes # 0.04 10^6/uL (0.020-0.100)
[2024-06-30 08:35] LABS: Hematocrit (blood only) 22.9 % (42.0-52.0); Hemoglobin 7.2 g/dl (14.0-18.0); Mean Corpuscular Hemoglobin 27.4 pg (25.0-34.0); Mean Corpuscular Hgb Conc 31.4 g/dL (32.0-36.0); Mean Corpuscular Volume 87.1 fL (80.0-100.0); Mean Platelet Volume 11.6 fL (9.4-12.4); Platelet Count 100 K/uL (130-400); RDW Coefficient of Variation 18.2 % (11.5-14.5); RDW Standard Deviation 56.7 fL (36.4-46.3); Red Blood Count 2.63 M/uL (4.70-6.10); White Blood Count 6.19 K/ul (4.8-10.8)
[2024-06-30 08:53] LABS: Calcium 8.5 mg/dl (8.6-10.3); Creatinine Clr Calc Pharmacy 180.5 ml/min; Potassium 3.6 mmol/L (3.5-5.1)
[2024-06-30 09:06] LABS: Basophils # (auto) 0.03 K/uL (0.00-0.20); Basophils % (auto) 0.5 %; Dohle Bodies 1+; Eosinophils # (auto) 1.64 K/uL (0.00-0.50); Eosinophils % (auto) 26.5 %; Immature Granulocytes # (auto) 0.12 K/uL (0.01-0.20); Immature Granulocytes % (auto) 1.9 %; Lymphocytes # (auto) 0.45 K/uL (1.20-3.40); Lymphocytes % (auto) 7.3 %; Monocytes # (auto) 0.15 K/uL (0.11-0.59); Monocytes % (auto) 2.4 %; Neutrophils % (auto) 61.4 %; Toxic Granulation 1+
[2024-06-30] MEDS ORDERED: SODIUM CHLORIDE 0.9% 50 ML IV PRN (09:49)
[2024-06-30] MEDS ORDERED: SODIUM CHLORIDE 0.9% 100 ML IV PRN (09:49)
[2024-06-30 11:13] VITALS: RESP 16
[2024-06-30 13:14] VITALS: TEMP 97.9; O2SAT 97
--- NOTE | 2024-06-30 13:57 | Discharge Summary ---
Discharge Summary Date of Service June 30, 2024 Principal Dx & Hospital Course #1 = Principal Diagnosis (1) Symptomatic anemia: (2) Pancreatic cancer metastasized to liver: Plan #Symptomatic anemia Stanley is a 54-year-old male with a past medical history of essential tremor with metastatic pancreatic cancer who presents to the ER with complaints of fatigue and fall. Did not hit his head, no loss of consciousness. Found to be anemic at 6.9. Suspected secondary to chemotherapy, first dose 06/22/2024 with underlying anemia of chronic disease. Fecal occult blood negative. Received 3 units of PRBCs with improvement of hemoglobin to 7.4. Did have slight drop 0.2 this morning, transfuse an additional unit per Dr. Rashid's recommendations of hemoglobin goal greater than 7.5. #Pancreatic cancer metastasized to the liver Follows with CCP, Dr. Rashid. Recently initatied on NALIRFOX. Remeron added for appetite stimualtion - given low BP, started on 7.5mg daily and can uptitrated outpatient as tolerated #essential tremorcontinue Celexa and Topamax Dispo: discharge to home today updated at bedside 06/30 Notes For Next Care Provider Can up titrate Remeron dosing if no issues with orthostatic hypotension at home. Medication Changes From Visit Remeron added nightly Admission HPI Per Admitting Provider Javed Ding is a 54-year-old male with metastatic pancreatic cancer who presents to the ER with shortness of breath and dizziness. He started chemotherapy for pancreatic cancer on Saturday although unknown regimen at time of admission. He has been extremely fatigued with no energy, sleeping much of the time, shortness of breath with presyncope since his treatment. He called his oncologist and given prior anemia was suspected to be more anemic and was advised to go to the ER for possible transfusion. He denies any melena, hematochezia, hematuria, hematemesis, hemoptysis or significant bruising. No chest pain. He has also had 1+ pitting edema since the chemotherapy started. In the ER hemoglobin is 6.9 from previous value of 8.9 on June 19 and he is currently being transfused 1 unit when seen. Discharge Exam General: NAD, VS as above, lying in bed, appears improved from yesterday Resp: normal respiratory effort, lungs clear to auscultation CV: RRR, no murmur, Abd: normal bowel sounds, non tender, soft Extremities: Moves all extremities, no edema Neuro: A&O x3, Discharge Plan Discharge Items Patient Disposition: Home - Self-Care Reason For Visit: CHEMOTHERAPY-INDUCED ANEMIA Discharge Diagnosis: Anemia secondary to chronic disease and recent chemotherpay Activity: Resume your previous activity Non-emergency contact: Primary Care Provider and Oncologist Call non-emergency contact if: you have any medication questions, your pain is not controlled, your pain is worsening, your pain is unusual for you and your temperature is above 101 Follow-up/Referrals: Macrina Aguilera MD [Primary Care Provider] - (follow up within one week ) Diet: Regular Addtl Attending Provider Instructions: Mr. Ding, You were hospitalized after having weakness and fatigue after your recent chemotherapy. You were found to be anemic and received 4 units of blood and your counts have improved. Continue to follow with Dr. Rashid for further treatments and transfusions. You have been started on a medication, Remeron (mirtazapine) to help with sleep and your appetite. However, this can cause low blood pressures and your blood presures have been running on the lower end. For that reason, I have started you on the lowest dose, to prevent falls at home. If this is working well and you are not having issues with lightheadedness or dizziness, then the dose can be increased by your PCP or Dr. Rashid. You can still take melatonin while you take this. Follow up with your PCP within 7-10 days. Routine follow up with Dr. Rashid. Activity: You can do normal everyday activities as your body allows. Take rest breaks if you feel tired. Do not overexert. Stop activity if you have pain, shortness of breath or feel dizzy. CONTACT YOUR PRIMARY CARE PROVIDER if you experience any of the following: Shortness of breath or difficulty breathing Fevers or chills Feeling tired with normal activity or experiencing dizziness or fainting Difficulty following your treatment plan, or difficulty taking medications CALL 911 OR GO TO THE EMERGENCY DEPARTMENT if you experience any of the following: Severe abdominal pain or nausea/vomiting Severe chest pain, or chest pain that radiates (moves) to your jaw or arm Sudden, severe shortness of breath or difficulty breathing Thank you for allowing us to participate in your care. Pending Studies at Discharge: No Stand-Alone Forms: My [facility], Smoking Cessation Medications and DC Order Prescriptions: New mirtazapine [Remeron] 15 mg tablet 7.5 mg PO HS 30 Days Qty: 15 0RF Continued cholecalciferol (vitamin D3) 50 mcg (2,000 unit) capsule 50 mcg PO QAM cyanocobalamin (vitamin B-12) 2,500 mcg tablet 2,500 mcg PO QAM citalopram 20 mg tablet 20 mg PO BID ascorbic acid (vitamin C) [Vitamin C] 500 mg Tablet 500 mg PO QAM melatonin 3 mg Tablet 3 mg PO HS potassium chloride 10 mEq Capsule, Extended Release 10 meq PO QAM topiramate [Topamax] 100 mg Tablet 100 mg PO BID topiramate [Topamax] 50 mg Tablet 50 mg PO BID oxycodone-acetaminophen 5-325 mg tablet 1 tab PO Q6H Discharge Orders: Discharge Order (Routine); Ordered 06/30/24 Ordered By: Melonie Patel Admission Data Admit Date/Time: 06/28/24 17:47 Attending Provider: Marychuy Joaquin Admit Provider: Wing Payne Primary Care Provider: Macrina Aguilera Other Providers: Wing Payne; Sidra Rashid Other Interventions: Discharge Summary Assessment (RN) Last Done: 06/30/24 14:42 Hospital Stay Data Consultations 06/28/24 17:05 ED Decision to Admit Stat 06/29/24 00:12 Consult Oncology Routine Diagnostic Imagining Performed Chest X-Ray 06/29/24 00:08 EXAM: XR chest 1V portable CLINICAL HISTORY: Shortness of breath. TECHNIQUE: An X-ray image of the chest is obtained in AP projection. COMPARISON: Radiograph dated 06/18/2024. FINDINGS: A right central venous catheter is seen in situ with its distal tip at the cavoatrial junction. Pulmonary Parenchyma: Prominent perihilar broncho vascular markings. No evidence of consolidation, collapse, or focal opacities. No pulmonary nodules are identified. No evidence of pleural effusion or pleural thickening. Heart and Mediastinum: Heart size and shape are normal. No mediastinal widening or masses. No hilar or mediastinal lymphadenopathy. Bony Thorax: The bony thorax appears intact without fractures or deformities. Soft Tissues: Soft tissues overlying the chest wall are unremarkable. A device is seen projected over the left hemithorax, unchanged in position. IMPRESSION: 1. The prominence of perihilar broncho-vascular markings is probably due to pulmonary vascular congestion(stable). 2. No evidence of consolidation, collapse, or pleural effusion(stable). 3. A right central venous catheter is seen in situ with its distal tip at the cavoatrial junction, unchanged. 4. A device is seen projected over the left hemithorax, unchanged in position. Electronically signed by Lisa Taylor 06-29-2024 01:39 AM Pending Results Patient Have Any Pending Studies at Discharge: No Discharge Instructions Given to Patient (Per Discharging Provider) Mr. Ding, You were hospitalized after having weakness and fatigue after your recent chemotherapy. You were found to be anemic and received 4 units of blood and your counts have improved. Continue to follow with Dr. Rashid for further treatments and transfusions. You have been started on a medication, Remeron (mirtazapine) to help with sleep and your appetite. However, this can cause low blood pressures and your blood presures have been running on the lower end. For that reason, I have started you on the lowest dose, to prevent falls at home. If this is working well and you are not having issues with lightheadedness or dizziness, then the dose can be increased by your PCP or Dr. Rashid. You can still take melatonin while you take this. Follow up with your PCP within 7-10 days. Routine follow up with Dr. Rashid. Activity: You can do normal everyday activities as your body allows. Take rest breaks if you feel tired. Do not overexert. Stop activity if you have pain, shortness of breath or feel dizzy. CONTACT YOUR PRIMARY CARE PROVIDER if you experience any of the following: Shortness of breath or difficulty breathing Fevers or chills Feeling tired with normal activity or experiencing dizziness or fainting Difficulty following your treatment plan, or difficulty taking medications CALL 911 OR GO TO THE EMERGENCY DEPARTMENT if you experience any of the following: Severe abdominal pain or nausea/vomiting Severe chest pain, or chest pain that radiates (moves) to your jaw or arm Sudden, severe shortness of breath or difficulty breathing Thank you for allowing us to participate in your care. Supervising Physician Co-Signing Physician Notes PA Supervision Note: I did not personally see or examine the patient today, but I verified all jason points of EDNA Patel's assessment and plan with the following exceptions/additions: None Total Time Total Time Spent Total Time Spent (In Minutes): Time spent day of discharge 35 minutes including direct patient care, medication reconciliation, documentation, review of labs and images, and coordination of care. Coding Level of Care Code 19304 INP/OBS DISCH >30 MIN Diagnoses Symptomatic anemia D64.9 Pancreatic cancer metastasized to liver C25.9; C78.7
[2024-06-30 14:44] VITALS: BP 99/61; PULSE 84
--- NOTE | 2024-06-30 18:55 | Electrocardiogram Report ---
Test Reason : Blood Pressure : */* mmHG Vent. Rate : 92 BPM Atrial Rate : 92 BPM P-R Int : 132 ms QRS Dur : 104 ms QT Int : 340 ms P-R-T Axes : 43 19 13 degrees QTcB Int : 420 ms Sinus rhythm vs Atrial-paced rhythm Nonspecific T wave abnormality Abnormal ECG When compared with ECG of 25-May-2024 11:27, Nonspecific T wave abnormality, worse in Anterolateral leads Confirmed by Javier Varela ([id number]) on 06/30/2024 6:54:56 PM Referred By: Confirmed By: Javier Varela
== END 2024-06-30 15:47 | disposition home or self-care (01) | DRG 812 ==
LOC: ED 14:21 → 3N 17:47 → SUATTDRO 17:47 → 3N 20:08

== ENCOUNTER 2024-07-18 12:53 | Inpatient (IN) ==
--- NOTE | 2024-07-18 13:19 | Emergency Department Note ---
Impression & Plan Symptomatic anemia, Weakness, Acute hypokalemia ED Provider Note NAME: PALAK MATT AGE: 54 SEX: M : 1970 ARRIVES VIA: Walk-In INFORMANT: Patient ED PROVIDER(S): John Senior DO CHIEF COMPLAINT: Weakness HPI: Patient is a 54-year-old male with a past medical history of pancreatic cancer stage IV currently receiving chemo every other week with his last course about 12 days ago who presents to the ER for weakness. He notes that he cannot even get out of bed. He denies any headache or change in vision. No chest pain or shortness of breath. No nausea, vomiting or diarrhea. No dysuria, urgency or frequency. ADDITIONAL HISTORY OBTAINED: is present at bedside and provides additional history and notes that he started his chemo in early June and has been receiving it every other week. He has been having multiple blood transfusions due to the weakness. Chronic Medical/Social Conditions Affecting Care: Per HPI PAST MEDICAL HISTORY:See Below PAST SURGICAL HISTORY:See Below FAMILY HISTORY:See Below SOCIAL HISTORY:See Below HOME MEDICATIONS:See Below ALLERGIES:See Below VITALS:See Below PHYSICAL EXAMINATION: GENERAL: Sitting up in bed, alert, cachectic, chronically ill-appearing, pale EYE EXAM: normal conjunctiva. OROPHARYNX: no exudate, no erythema, lips, buccal mucosa, and tongue normal and mucous membranes are moist NECK: supple, no nuchal rigidity, no adenopathy, non-tender LUNGS: Clear to auscultation. Normal chest wall mechanics HEART: no murmurs, S1 normal and S2 normal ABDOMEN: abdomen soft, non-tender, normo-active bowel sounds, no masses, no rebound or guarding. UPPER EXTREMITIES: upper extremities are grossly normal. LOWER EXTREMITIES: Pitting edema in the bilateral lower extremities NEURO EXAM: Normal sensorium, cranial nerves II-XII grossly intact, normal speech, no gross weakness of arms, no gross weakness of legs. MEDICAL DECISION MAKING: Patient is a 54-year-old male who presents ER for the below stated complaint. IV was established and blood work was obtained. Labs show faint leukocytosis 11.9. Symptomatic anemia with a hemoglobin of 6.7 down from 8. BMP with a mild hypokalemia 3.1. LFTs was unremarkable. T. bili slightly up at 2.3. Lipase was normal. Patient was typed and crossed and ordered 1 unit PRBCs and this was given while in the ER.. Chest x-ray was unremarkable. was updated bedside. Discussed with the case with the hospitalist for further evaluation management treatment especially in light of him being too weak to get up and move around on his own. Consults/Care Managements Discussions: Per [facility] Triage Nursing notes reviewed. Limited review of prior medical records performed Vital Signs: reviewed and remarkable for hypotension and tachy Differential diagnosis: Infection, dehydration, metabolic abnormality, hypo/hyperglycemia, electrolyte disturbance, anemia, hypoxia, cardiac sources, intracerebral event, toxicologic, neurologic, as well as other pathologies. ER treatment provided: See below Diagnostics interpreted by me include EKG and cardiac monitoring as listed below: -Cardiac Monitoring: An order was placed for continuous cardiac monitoring. The monitor shows a rate of 88 with sinus rhythm. -ECG: none -Laboratory studies:Interpreted by me as stated above in MDM and shown below. Imaging studies: Xrays: As interpreted by me: Portable AP upright 1 view of the chest shows no focal infiltrate CTs show: None Procedures: None Critical Care: I have personally spent 33 minutes of critical care time in the direct management of this patient. This includes bedside care, interpretation of diagnostic studies, and testing, discussion with consultants, patient, and family members, and other required patient management activities. This 33 minutes is in excess of all separately billable procedures. Past Med/Surg History Problem List (Updated 07/18/24 @ 18:36 by John Senior DO) Acute hypokalemia (Acute) Symptomatic anemia (Acute) Weakness (Acute) Pancreatic cancer (Acute) Anemia (Acute) Iron deficiency Liver lesion Trochanteric bursitis, right hip Stiff neck Cervical arthritis Encounter for pre-operative examination Medical History 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 [facility]. 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 Obesity Dysphagia Chronic coughing with swallowing and occasional choking -pt attributes to cervical spine osteoarthritis Spinal osteoarthritis BRCA gene positive Essential tremor Myoclonus dystonia Following with [facility] Neurology tremors, sometimes stutters with and pt reports he can go off into a stare but can understand what you are saying. Surgical History Port-A-Cath in place (06/18/24) Insertion Access Port with Fluoroscopy Right Internal Jugular Vein(Right) - Nils Chung, History of arthroscopic surgery of shoulder (07/2023) rotator cuff, bicep repair - right History of vasectomy History of wisdom tooth extraction History of colonoscopy History of hand surgery Right History of foot surgery Left S/P deep brain stimulator placement Pt instructed to bring remote DOS Social History Smoking Status: Former smoker Tobacco Type: Cigarettes Second Hand Exposure: No; Do You Dip or Chew Tobacco: No; Hx Alcohol Use: No Hx Substance Use: No Preferred Language: Andorran Communication Ability: Effective Electric Motorman Required: No Beliefs That Will Affect Care: None Current Living Situation: Spouse Feels Safe at Home: Yes Assistive Devices: Cane Allergies Allergies Allergy/AdvReac Type Severity Reaction Status Date / Time erythromycin base Allergy Unknown Rash Verified 07/10/24 10:10 Penicillins Allergy Unknown Rash Verified 07/10/24 10:10 Home Meds Home Medications Medication Instructions Recorded Confirmed cholecalciferol (vitamin D3) 50 50 mcg PO QAM 06/28/23 07/18/24 mcg (2,000 unit) capsule citalopram 20 mg tablet 20 mg PO BID 06/28/23 07/18/24 cyanocobalamin (vitamin B-12) 2,500 mcg PO QAM 06/28/23 07/18/24 2,500 mcg tablet ascorbic acid (vitamin C) 500 mg 500 mg PO QAM 07/09/23 07/18/24 tablet (Vitamin C) melatonin 3 mg tablet 3 mg PO HS Sleep 06/16/24 07/18/24 potassium chloride 10 mEq 10 meq PO QAM 06/16/24 07/18/24 capsule,extended release topiramate 100 mg tablet (Topamax) 100 mg PO BID 06/18/24 07/18/24 topiramate 50 mg tablet (Topamax) 50 mg PO BID 06/18/24 07/18/24 oxycodone-acetaminophen 5 mg-325 1 tab PO Q6H 06/28/24 07/18/24 mg tablet Previous Rx's Medication Instructions Recorded mirtazapine 15 mg tablet (Remeron) 7.5 mg (1/2 x 15 mg) PO HS 30 days 06/30/24 #15 tabs Results & Data (ED) Vital Signs Vital Signs - 24 hr 07/18/24 13:04 07/18/24 13:33 07/18/24 13:33 Temperature 36.6 C Temperature Source Temporal Artery Scan Pulse Rate 119 H 87 Pulse Rate from SpO2 Sensor 87 Pulse Rhythm Regular Pulse Strength Normal Respiratory Rate 18 17 Respiratory Effort / Characteristics Non-Labored Respiratory Depth Normal Respiratory Pattern Regular Blood Pressure 91/62 L 107/57 L Blood Pressure Mean 71 73 Blood Pressure Position Sitting Pulse Oximetry 98 94 Oxygen Delivery Method Room Air Room Air Sepsis Recent Fever Within 48 Hours No Sepsis New/Unexplained Change in Mental Status N/A Sepsis Action Taken by Nursing No Action Required 07/18/24 13:52 07/18/24 14:00 07/18/24 14:33 Temperature Temperature Source Pulse Rate 83 81 80 Pulse Rate from SpO2 Sensor 81 79 Pulse Rhythm Pulse Strength Respiratory Rate 17 27 H Respiratory Effort / Characteristics Respiratory Depth Respiratory Pattern Blood Pressure 104/57 L 110/62 Blood Pressure Mean 72 78 Blood Pressure Position Pulse Oximetry 94 97 Oxygen Delivery Method Sepsis Recent Fever Within 48 Hours Sepsis New/Unexplained Change in Mental Status Sepsis Action Taken by Nursing Laboratory Data 07/18/24 13:24 07/18/24 13:24 Lab Results 07/18/24 07/18/24 Range/Units 13:24 14:27 WBC 11.95 H (4.8-10.8) K/ul RBC 2.47 L (4.70-6.10) M/uL Hgb 6.7 L* (14.0-18.0) g/dl Hct 23.1 L (42.0-52.0) % MCV 93.5 (80.0-100.0) fL MCH 27.1 (25.0-34.0) pg MCHC 29.0 L (32.0-36.0) g/dL RDW Std Deviation 73.1 H (36.4-46.3) fL RDW Coeff of Sd 22.1 H (11.5-14.5) % Plt Count 342 (130-400) K/uL MPV 10.9 (9.4-12.4) fL Immature Gran % (Auto) 2.0 % Neut % (Auto) 57.1 % Lymph % (Auto) 8.9 % Roberts % (Auto) 12.9 % Eos % (Auto) 18.8 % Baso % (Auto) 0.3 % Neut # (Auto) 6.82 H (1.40-6.50) K/uL Lymph # (Auto) 1.06 L (1.20-3.40) K/uL Roberts # (Auto) 1.54 H (0.11-0.59) K/uL Eos # (Auto) 2.25 H (0.00-0.50) K/uL Baso # (Auto) 0.04 (0.00-0.20) K/uL Immature Gran # (Auto) 0.24 H (0.01-0.20) K/uL Absolute Nucleated RBC 0.13 H (0.00-0.12) K/uL Nucleated RBC % (auto) 1.1 % Dohle Bodies 1+ Polychromasia 2+ Poikilocytosis Present Anisocytosis Present Sodium 135 L (136-145) mmol/L Potassium 3.1 L (3.5-5.1) mmol/L Chloride 101 (98-107) mmol/L Carbon Dioxide 24 (21-32) mmol/L Anion Gap 10 (3-11) BUN 17 (6-23) mg/dl Creatinine 0.61 (0.6-1.4) mg/dl Est Cr Clr Drug Dosing 142.8 ml/min eGFR 113.43 BUN/Creatinine Ratio 27.9 H (10-20) Glucose 99 (70-99(Fasting)) mg/dl Calcium 10.1 (8.6-10.3) mg/dl Total Bilirubin 2.3 H (0.2-1.0) mg/dl AST 7 L (13-39) U/L ALT 6 L (7-52) U/L Alkaline Phosphatase 112 H (34-104) U/L Total Protein 5.2 L (6.0-8.3) gm/dl Albumin 2.6 L (3.4-5.0) gm/dl Globulin 2.6 (2.5-4.0) gm/dl Albumin/Globulin Ratio 1.0 (0.9-2) Lipase 7 L (11-82) U/L Blood Type A Negative Antibody Screen NEGATIVE Crossmatch See Detail Administered Medications Albumin Human (Albumin 25%) 25 gm in 100 mls @ 50 mls/hr IV Q2H AVANI Stop: 07/18/24 19:14 Last Admin: 07/18/24 18:05 Dose: 50 mls/hr Documented By: Infusion: 07/18/24 17:53 Dose: Infused Documented By: Admin: 07/18/24 15:51 Dose: 50 mls/hr Documented By: BOBBY Discontinued Medications Sodium Chloride (Nss) 500 mls @ 999 mls/hr IV .Q31M ONE Stop: 07/18/24 13:46 Last Infusion: 07/18/24 14:05 Dose: Infused Documented By: Admin: 07/18/24 13:30 Dose: 999 mls/hr Documented By: LUIS Potassium Chloride (Potassium Chloride Crtab 20 Meq Tabcr) 40 meq PO NOW STA Stop: 07/18/24 15:16 Last Admin: 07/18/24 15:52 Dose: 40 meq Documented By: BOBBY Imaging Data Radiologist's Impression: Chest X-Ray 07/18/24 13:16 XR chest 1V portable CLINICAL HISTORY: weak COMPARISON STUDY: Chest CT May 25, 2024. Chest radiograph June 29, 2024. FINDINGS: Right internal jugular [id number] and stimulator device are incidentally noted. There is no pneumothorax or pleural effusion. There is no consolidation or evidence for pulmonary edema. Cardiomediastinal silhouette is unremarkable. IMPRESSION: No acute cardiopulmonary findings. ACT 112: Negative or not required by law. Electronically signed by: Heriberto Herrera M.D. 07/18/2024 1:52 PM Discharge Plan Visit Data Chief Complaint: Referred by Doctor Stated Complaint: REF BY ONCOLOGY, FATIGUE ED Provider: John Senior Discharge Problem: Symptomatic anemia, Weakness, Acute hypokalemia Patient Disposition: Admitted As Inpatient Discharge Instructions Interventions: ED Discharge Assessment Last Done: 07/18/24 16:06
[2024-07-18] MEDS: SODIUM CHLORIDE 0.9% 500 ML IV ONE (13:30)
--- NOTE | 2024-07-18 13:53 | XRay Report ---
XR chest 1V portable CLINICAL HISTORY: weak COMPARISON STUDY: Chest CT May 25, 2024. Chest radiograph June 29, 2024. FINDINGS: Right internal jugular [id number] and stimulator device are incidentally noted. There is no pneumothorax or pleural effusion. There is no consolidation or evidence for pulmonary edema. Card iomediastinal silhouette is unremarkable. IMPRESSION: No acute cardiopulmonary findings. ACT 112: Negative or not required by law. Electronically signed by: Heriberto Herrera M.D. 07/18/2024 1:52 PM
[2024-07-18 13:59] LABS: Hematocrit (blood only) 23.1 % (42.0-52.0); Hemoglobin 6.7 g/dl (14.0-18.0); Mean Corpuscular Hemoglobin 27.1 pg (25.0-34.0); Mean Corpuscular Volume 93.5 fL (80.0-100.0); Mean Platelet Volume 10.9 fL (9.4-12.4); Nucleated RBC # (auto) 0.13 K/uL (0.00-0.12); Nucleated RBC % (auto) 1.1 %; Platelet Count 342 K/uL (130-400); RDW Coefficient of Variation 22.1 % (11.5-14.5); RDW Standard Deviation 73.1 fL (36.4-46.3); Red Blood Count 2.47 M/uL (4.70-6.10); White Blood Count 11.95 K/ul (4.8-10.8)
[2024-07-18 14:11] LABS: Albumin Level 2.6 gm/dl (3.4-5.0); BUN Creatinine Ratio 27.9 (10-20); Bilirubin,Total 2.3 mg/dl (0.2-1.0); Calcium 10.1 mg/dl (8.6-10.3); Creatinine Clr Calc Pharmacy 142.8 ml/min; Globulin 2.6 gm/dl (2.5-4.0); Potassium 3.1 mmol/L (3.5-5.1); Total Protein 5.2 gm/dl (6.0-8.3)
[2024-07-18 14:17] LABS: Anisocytosis Present; Basophils # (auto) 0.04 K/uL (0.00-0.20); Basophils % (auto) 0.3 %; Dohle Bodies 1+; Eosinophils # (auto) 2.25 K/uL (0.00-0.50); Eosinophils % (auto) 18.8 %; Immature Granulocytes # (auto) 0.24 K/uL (0.01-0.20); Lymphocytes # (auto) 1.06 K/uL (1.20-3.40); Lymphocytes % (auto) 8.9 %; Monocytes # (auto) 1.54 K/uL (0.11-0.59); Monocytes % (auto) 12.9 %; Neutrophils # (auto) 6.82 K/uL (1.40-6.50); Neutrophils % (auto) 57.1 %; Poikilocytosis Present; Polychromasia 2+
[2024-07-18] MEDS ORDERED: SODIUM CHLORIDE 0.9% 50 ML IV PRN ×2 (14:20→23:31)
[2024-07-18] MEDS ORDERED: SODIUM CHLORIDE 0.9% 100 ML IV PRN ×2 (14:20→23:31)
--- NOTE | 2024-07-18 15:08 | History & Physical Report ---
Date of Service July 18, 2024 Assessment & Plan (1) Symptomatic anemia: Plan: Patient has a history of metastatic gastric cancer. Presents with generalized weakness and fatigue. Found to have a hemoglobin of 6.7. Denies blood in stool or blood in urine Will transfuse 1 unit of blood Recheck hemoglobin. (2) Pancreatic cancer metastasized to liver: Plan: Follows up with hematology and oncology outpatient Currently on chemotherapy Last chemotherapy was about 12 days ago (3) Weakness: Plan: Generalized weakness and deconditioning. Most likely from cancer and cancer treatment Will encourage nutrition and general supplements Also physical therapy. 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 Given his previous symptoms and presentations, he is who was at bedside and gives part of the history said she called the on-call tavern operator who advised him to come to the emergency department. Here in the emergency department, his hemoglobin was found to be 6.7. He denies blood in the stool or blood in the urine. He will be admitted to the hospital for transfusion and further management. Allergies Allergy/AdvReac Type Severity Reaction Status Date / Time erythromycin base Allergy Unknown Rash Verified 07/10/24 10:10 Penicillins Allergy Unknown Rash Verified 07/10/24 10:10 Home Medications Medication Instructions Recorded Confirmed Type cholecalciferol (vitamin D3) 50 50 mcg PO QAM 06/28/23 07/18/24 History mcg (2,000 unit) capsule citalopram 20 mg tablet 20 mg PO BID 06/28/23 07/18/24 History cyanocobalamin (vitamin B-12) 2,500 mcg PO QAM 06/28/23 07/18/24 History 2,500 mcg tablet ascorbic acid (vitamin C) 500 mg 500 mg PO QAM 07/09/23 07/18/24 History tablet (Vitamin C) melatonin 3 mg tablet 3 mg PO HS Sleep 06/16/24 07/18/24 History potassium chloride 10 mEq 10 meq PO QAM 06/16/24 07/18/24 History capsule,extended release topiramate 100 mg tablet (Topamax) 100 mg PO BID 06/18/24 07/18/24 History topiramate 50 mg tablet (Topamax) 50 mg PO BID 06/18/24 07/18/24 History oxycodone-acetaminophen 5 mg-325 1 tab PO Q6H 06/28/24 07/18/24 History mg tablet mirtazapine 15 mg tablet (Remeron) 7.5 mg (1/2 x 15 mg) PO HS 30 days 06/30/24 07/18/24 Rx #15 tabs Past Med/Surg History Problem List (Updated 07/18/24 @ 15:06 by Juice Padrno MD) Weakness Pancreatic cancer (Acute) Anemia (Acute) Iron deficiency Liver lesion Trochanteric bursitis, right hip Stiff neck Cervical arthritis Encounter for pre-operative examination Medical History 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 [facility], [place]. 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 Obesity Dysphagia Chronic coughing with swallowing and occasional choking -pt attributes to cervical spine osteoarthritis Spinal osteoarthritis BRCA gene positive Essential tremor Myoclonus dystonia Following with [facility] Neurology tremors, sometimes stutters with and pt reports he can go off into a stare but can understand what you are saying. Surgical History Port-A-Cath in place (06/18/24) Insertion Access Port with Fluoroscopy Right Internal Jugular Vein(Right) - Nils Chung DO History of arthroscopic surgery of shoulder (07/2023) rotator cuff, bicep repair - right History of vasectomy History of wisdom tooth extraction History of colonoscopy History of hand surgery Right History of foot surgery Left S/P deep brain stimulator placement Pt instructed to bring remote DOS Social History Smoking Status: Never smoker Tobacco Type: Cigarettes Second Hand Exposure: No; Do You Dip or Chew Tobacco: No; Hx Alcohol Use: No Hx Substance Use: No Preferred Language: Emirati Communication Ability: Effective Manager Poker Required: No Beliefs That Will Affect Care: None Current Living Situation: Spouse Feels Safe at Home: Yes Assistive Devices: Cane Review of Systems Review of Systems: All systems reviewed are negative, apart from the ones contained in the history. Physical Exam Physical Exam: The patient is awake, alert and oriented 3, pale HEENT--PERRL, EOMI, mucous membranes and oropharynx mildly dry Neck--supple. No JVD. No bruits. Thyroid normal, trachea midline, no adenopathy. Heart--normal S1 and S2. No murmurs, rubs or gallops. Lungs--clear bilaterally, no respiratory distress, no accessory muscle use. Abdomen--normal bowel sounds and soft. Extremities--no cyanosis or clubbing. leg edema. Dermatologic--normal skin turgor, normal color, no abnormal lymph nodes, no rash. Neurologic--cranial nerves II through XII grossly intact. Rheumatologic--normal range of motion. Psychiatric--normal affect. Results & Data Results & Data Vital Signs (Past 12 Hours) Vital Signs Temp Pulse Resp BP Pulse Ox O2 Del Method 07/18/24 14:00 81 17 104/57 L 94 07/18/24 13:52 83 07/18/24 13:33 87 17 107/57 L 94 07/18/24 13:33 Room Air 07/18/24 13:04 97.9 F 119 H 18 91/62 L 98 Room Air PG Care Time/CCT Total # of Minutes Spent Total Time Spent with Patient: Total time spent is greater than 50% in coordination of care (as documented) at patient's floor/unit and/or counseling patient: Coding Level of Care Code 41981 INT INP/OBS CARE 3/75MIN Diagnoses Symptomatic anemia D64.9 Pancreatic cancer metastasized to liver C25.9; C78.7 Weakness R53.1 Myoclonus dystonia G24.8; G25.3 S/P deep brain stimulator placement Z96.89 Time Spent (min) 75
[2024-07-18] MEDS: ALBUMIN 25% 25 GM/100 ML VIAL IV SCH (15:51)
[2024-07-18] MEDS: POTASSIUM CHLORIDE CRTAB 20 MEQ TABCR PO STA (15:52)
[2024-07-18] MEDS: MELATONIN 3 MG TAB PO SCH (21:03)
[2024-07-18] MEDS: CITALOPRAM 20 MG TAB PO SCH (21:04)
[2024-07-18] MEDS: TOPIRAMATE 50 MG TAB PO SCH (21:04)
[2024-07-18] MEDS: TOPIRAMATE 100 MG TAB PO SCH (21:04)
[2024-07-18] MEDS: HEPARIN SOD 5,000 UNIT/0.5 ML VIAL SQ SCH (21:05)
[2024-07-18] MEDS: MIRTAZAPINE TAB 15 MG TAB PO SCH (21:05)
[2024-07-18 22:47] LABS: Appearance Urine Clear (Clear); Bilirubin Urine 2+ (Negative); Blood Urine Negative (Negative); Color Urine Orange; Epithelial Cell Urine Auto 0-2 /hpf (0-2); Glucose Urine UA Negative (Negative); Ketones Urine Negative (Negative); Leukocyte Esterase Urine Trace (Negative); Nitrite Urine Positive (Negative); Protein Urine Trace (Negative); RBC Urine Automated 0-2 /hpf (0-2); Specific Gravity Urine 1.019 (1.000-1.030); Urobilinogen Urine Negative (Negative); WBC Urine Automated 0-5 /hpf (0-5); pH Urine 5.5 (4.5-7.5)
[2024-07-18 23:03] LABS: Calcium Oxalate Crystals Urine Present (None Prsent); Mucus Urine Present (None Prsent)
[2024-07-18 23:05] LABS: Bacteria Urine Automated 1+ (None Seen)
[2024-07-18 23:27] LABS: Hematocrit (blood only) 19.8 % (42.0-52.0)
[2024-07-19] MEDS: HEPARIN 100 UNIT/ML 5ML FLUSH FLUSH PRN (02:41)
[2024-07-19] MEDS ORDERED: HEPARIN 100 UNIT/ML 5ML FLUSH FLUSH PRN (05:09)
[2024-07-19] MEDS ORDERED: cefTRIAXone SODIUM 1,000 MG/50 ML BAG IV SCH (08:00)
[2024-07-19] MEDS: ASCORBIC ACID 500 MG TAB PO SCH (08:03)
[2024-07-19] MEDS: CYANOCOBALAMIN (B-12) 2,500 MCG TABLET PO SCH (08:03)
[2024-07-19] MEDS: POTASSIUM CHLORIDE 10 MEQ TABCR PO SCH (08:03)
[2024-07-19] MEDS: CHOLECALCIFEROL 25 MCG (1000 UNITS) TAB PO SCH (08:03)
[2024-07-19] MEDS: cefTRIAXone SODIUM 2,000 MG/50 ML BAG IV SCH (08:40)
[2024-07-19 08:49] LABS: Hematocrit (blood only) 24.5 % (42.0-52.0); Hemoglobin 7.7 g/dl (14.0-18.0); Mean Corpuscular Hemoglobin 28.7 pg (25.0-34.0); Mean Corpuscular Hgb Conc 31.4 g/dL (32.0-36.0); Mean Corpuscular Volume 91.4 fL (80.0-100.0); Mean Platelet Volume 10.1 fL (9.4-12.4); Nucleated RBC # (auto) 0.12 K/uL (0.00-0.12); Nucleated RBC % (auto) 0.8 %; Platelet Count 262 K/uL (130-400); RDW Coefficient of Variation 20.1 % (11.5-14.5); RDW Standard Deviation 63.7 fL (36.4-46.3); Red Blood Count 2.68 M/uL (4.70-6.10)
[2024-07-19 09:04] LABS: Calcium 9.4 mg/dl (8.6-10.3); Creatinine Clr Calc Pharmacy 174.2 ml/min; Potassium 2.9 mmol/L (3.5-5.1)
--- NOTE | 2024-07-19 11:08 | Hospitalist Progress Note ---
Date of Service July 19, 2024 Assessment & Plan (1) Symptomatic anemia: Plan: Patient has a history of metastatic gastric cancer. Presents with generalized weakness and fatigue. Found to have a hemoglobin of 6.7. Denies blood in stool or blood in urine Now s/p 1unit of blood. Repeat Hb 7.6 (2) UTI (urinary tract infection): Plan: Urinalysis suggests UTI cultures pending IV ceftriaxone 1g Q 24 hrs for now (3) Pancreatic cancer metastasized to liver: Plan: Follows up with hematology and oncology outpatient Currently on chemotherapy Last chemotherapy was about 12 days prior to presentation (4) Weakness: Plan: Generalized weakness and deconditioning. Most likely from cancer and cancer treatment Will encourage nutrition and general supplements Also physical therapy. (5) Myoclonus dystonia: (6) S/P deep brain stimulator placement: Plan PT eval pending, may need SNF DVT prophylaxis heparin Admission and Anticipated Discharge Date Admission Date: July 18, 2024 Subjective patient seen and examined, feels better, no longer pale Review of Systems Review of Systems: All systems reviewed are negative, apart from the ones contained in the history. Physical Exam Physical Exam: The patient is awake, alert and oriented 3, HEENT--PERRL, EOMI, mucous membranes and oropharynx mildly dry Neck--supple. No JVD. No bruits. Thyroid normal, trachea midline, no adenopathy. Heart--normal S1 and S2. No murmurs, rubs or gallops. Lungs--clear bilaterally, no respiratory distress, no accessory muscle use. Abdomen--normal bowel sounds and soft. Extremities--no cyanosis or clubbing. leg edema. Dermatologic--normal skin turgor, normal color, no abnormal lymph nodes, no rash. Neurologic--cranial nerves II through XII grossly intact. Rheumatologic--normal range of motion. Psychiatric--normal affect. Results & Data Results & Data Vital Signs (Past 12 Hours) Vital Signs Temp Pulse Pulse Resp BP BP Pulse Ox 07/19/24 07:44 97.9 F 83 16 103/68 97 07/19/24 06:11 97.5 F L 87 16 110/70 96 07/19/24 04:01 98.4 F 97 H 16 106/68 97 07/19/24 03:55 98.4 F 87 18 106/68 97 07/19/24 03:25 98.2 F 86 106/67 96 07/19/24 03:01 98.8 F 88 14 109/67 96 07/19/24 02:58 98.8 F 88 14 109/67 96 07/19/24 02:25 98.2 F 86 16 106/67 96 07/19/24 01:48 98.1 F 87 14 108/65 97 07/19/24 00:48 97.9 F 91 H 113/64 96 07/19/24 00:25 98.4 F 93 H 107/62 96 07/19/24 00:03 98.1 F 90 16 107/64 95 07/18/24 23:45 98.2 F 83 14 104/65 96 O2 Del Method 07/19/24 07:44 Room Air 07/19/24 06:11 07/19/24 04:01 07/19/24 03:55 07/19/24 03:25 07/19/24 03:01 07/19/24 02:58 07/19/24 02:25 07/19/24 01:48 07/19/24 00:48 07/19/24 00:25 07/19/24 00:03 07/18/24 23:45 PG Care Time/CCT Total # of Minutes Spent Total Time Spent with Patient: Total time spent is greater than 50% in coordination of care (as documented) at patient's floor/unit and/or counseling patient: Coding Level of Care Code 27464 SUB INP/OBS CARE 2/35MIN Diagnoses Symptomatic anemia D64.9 UTI (urinary tract infection) N39.0 Pancreatic cancer metastasized to liver C25.9; C78.7 Weakness R53.1 Myoclonus dystonia G24.8; G25.3 S/P deep brain stimulator placement Z96.89 Time Spent (min) 35
[2024-07-19] MEDS: POTASSIUM CHLORIDE CRTAB 20 MEQ TABCR PO STA (11:40)
[2024-07-20] MEDS: HEPARIN SOD 5,000 UNIT/0.5 ML VIAL SQ SCH (08:26)
[2024-07-20] MEDS: oxyCODONE/ACETAMINOPHEN 5mg/325mg TAB PO PRN (08:35)
[2024-07-20 08:50] LABS: BUN Creatinine Ratio 27.1 (10-20); Calcium 9.9 mg/dl (8.6-10.3); Creatinine Clr Calc Pharmacy 181.5 ml/min; Potassium 3.2 mmol/L (3.5-5.1)
[2024-07-20 08:59] LABS: Hematocrit (blood only) 26.6 % (42.0-52.0); Hemoglobin 8.2 g/dl (14.0-18.0); Mean Corpuscular Hemoglobin 28.3 pg (25.0-34.0); Mean Corpuscular Hgb Conc 30.8 g/dL (32.0-36.0); Mean Corpuscular Volume 91.7 fL (80.0-100.0); Mean Platelet Volume 10.3 fL (9.4-12.4); Nucleated RBC # (auto) 0.07 K/uL (0.00-0.12); Nucleated RBC % (auto) 0.3 %; Platelet Count 276 K/uL (130-400); RDW Coefficient of Variation 20.2 % (11.5-14.5); RDW Standard Deviation 64.4 fL (36.4-46.3); White Blood Count 24.31 K/ul (4.8-10.8)
[2024-07-20 09:00] LABS: Basophils # (auto) 0.11 K/uL (0.00-0.20); Basophils % (auto) 0.5 %; Dohle Bodies 2+; Eosinophils # (auto) 4.13 K/uL (0.00-0.50); Immature Granulocytes # (auto) 1.42 K/uL (0.01-0.20); Immature Granulocytes % (auto) 5.8 %; Lymphocytes # (auto) 1.11 K/uL (1.20-3.40); Lymphocytes % (auto) 4.6 %; Monocytes % (auto) 6.2 %; Neutrophils # (auto) 16.04 K/uL (1.40-6.50); Neutrophils % (auto) 65.9 %; Polychromasia 2+; Toxic Granulation 3+
[2024-07-20] MEDS: POTASSIUM CHLORIDE CRTAB 20 MEQ TABCR PO SCH (10:39)
[2024-07-20] MEDS: IRON SUCROSE 300 MG in SODIUM CHLORIDE 0.9% 250 ML IV ONE (10:42)
--- NOTE | 2024-07-20 11:56 | Hospitalist Progress Note ---
Date of Service July 20, 2024 Assessment & Plan (1) Symptomatic anemia: Plan: Iron deficiency documented. He has received a blood transfusion this admission. Hemoglobin now stable at 8.2. Parenteral iron replacement underway. (2) UTI (urinary tract infection): Plan: Ruled out. Urine culture negative. Rocephin discontinued. (3) Pancreatic cancer metastasized to liver: Plan: Follows up with hematology and oncology outpatient. Currently on chemotherapy (4) Weakness: Plan: Treat anemia. Continue OT and PT. (5) Myoclonus dystonia: Plan: Stable. Continue current medical management (6) S/P deep brain stimulator placement: Plan: Stable. Continue current medical management Plan Hopeful discharge to home tomorrow, July 21 Admission and Anticipated Discharge Date Admission Date: July 18, 2024 Subjective Alert and oriented. Significant other is at the bedside. Iron deficiency noted. Parenteral iron replacement underway. No indication for systemic antibiotics. Rocephin has been discontinued. Oral potassium replacement ordered. Hemoglobin is stable at 8.2. Hopefully he can go home tomorrow, July 21 Review of Systems 2 Review of Systems: Constitutionalno fever or chills. Systemic weakness from underlying disease processes ENTno blurred vision, no double vision, no epistaxis, no sore throat Respiratoryno cough, no wheezing, no shortness of breath Cardiacno palpitations, no chest pain, no syncope Joanna nausea, vomiting, diarrhea, melena, hematochezia GUno urinary retention, no urinary incontinence, no dysuria, no hematuria Musculoskeletalno joint pain, no muscle tenderness Skinno bruising, no rashes, no pruritus Neurono isolated weakness, no paresthesia, no weakness Psychno depression, no anxiety Physical Exam 2 Physical Exam: General-alert and oriented x3, no fever, no chills HEENT-head atraumatic and normocephalic, pupils equal and reactive to light, extraocular muscles intact Neck-no lymphadenopathy or thyromegaly, trachea midline Chest-clear to auscultation. No rales, wheezing or rhonchi Cardiac-regular rate and rhythm, normal S1 and S2 Abdomen-normal bowel sounds, no hepatosplenomegaly Extremities-no cyanosis, clubbing, or edema Skinpallor noted Neuro-cranial nerves II through XII intact, motor and sensory function within normal limits, strength symmetrical with generalized weakness, no focal deficits Psych-normal affect, normal mood Results & Data Results & Data Vital Signs (Past 12 Hours) Vital Signs Temp Pulse Resp BP Pulse Ox O2 Del Method 07/20/24 11:10 36.4 C L 88 14 94/58 L 94 Room Air 07/20/24 10:38 36.4 C L 89 14 100/61 94 Room Air 07/20/24 07:56 36.6 C 81 16 111/68 97 Room Air Laboratory Results 07/20/24 08:08 07/20/24 08:08 PG Care Time/CCT Total # of Minutes Spent Total Time Spent with Patient: Total time spent is greater than 50% in coordination of care (as documented) at patient's floor/unit and/or counseling patient: Coding Level of Care Code 79165 SUB INP/OBS CARE 3/50MIN Diagnoses Symptomatic anemia D64.9 UTI (urinary tract infection) N39.0 Pancreatic cancer metastasized to liver C25.9; C78.7 Weakness R53.1 Myoclonus dystonia G24.8; G25.3 S/P deep brain stimulator placement Z96.89
[2024-07-20] MEDS: ACETAMINOPHEN 500 MG TAB PO PRN (22:51)
[2024-07-21 07:24] VITALS: RESP 16
[2024-07-21 08:20] LABS: Hematocrit (blood only) 23.8 % (42.0-52.0); Hemoglobin 7.4 g/dl (14.0-18.0); Mean Corpuscular Hemoglobin 28.7 pg (25.0-34.0); Mean Corpuscular Hgb Conc 31.1 g/dL (32.0-36.0); Mean Corpuscular Volume 92.2 fL (80.0-100.0); Mean Platelet Volume 10.6 fL (9.4-12.4); Nucleated RBC # (auto) 0.04 K/uL (0.00-0.12); Nucleated RBC % (auto) 0.1 %; Platelet Count 243 K/uL (130-400); RDW Standard Deviation 65.5 fL (36.4-46.3); Red Blood Count 2.58 M/uL (4.70-6.10)
[2024-07-21 08:40] LABS: BUN Creatinine Ratio 36.6 (10-20); Calcium 10.2 mg/dl (8.6-10.3); Creatinine Clr Calc Pharmacy 212.4 ml/min; Potassium 3.6 mmol/L (3.5-5.1)
[2024-07-21 08:57] LABS: Basophils # (auto) 0.09 K/uL (0.00-0.20); Basophils % (auto) 0.3 %; Dohle Bodies 1+; Eosinophils # (auto) 4.65 K/uL (0.00-0.50); Eosinophils % (auto) 15.7 %; Immature Granulocytes # (auto) 1.78 K/uL (0.01-0.20); Lymphocytes # (auto) 1.41 K/uL (1.20-3.40); Lymphocytes % (auto) 4.8 %; Monocytes # (auto) 1.48 K/uL (0.11-0.59); Neutrophils # (auto) 20.19 K/uL (1.40-6.50); Neutrophils % (auto) 68.2 %; Polychromasia 1+; Toxic Vacuolation 1+
[2024-07-21] MEDS: IRON SUCROSE 300 MG in SODIUM CHLORIDE 0.9% 250 ML IV ONE (11:02)
[2024-07-21 11:12] VITALS: O2SAT 92
--- NOTE | 2024-07-21 12:25 | Discharge Summary ---
Discharge Summary Date of Service July 21, 2024 Principal Dx & Hospital Course #1 = Principal Diagnosis (1) Symptomatic anemia: Iron deficiency documented. He has received a blood transfusion this admission. Hemoglobin remains low but stable. He will remain on an iron supplement at discharge going forward. He did receive parenteral iron while hospitalized (2) UTI (urinary tract infection): Ruled out. Urine culture negative. Rocephin has been discontinued. (3) Pancreatic cancer metastasized to liver: Follows up with hematology and oncology outpatient. Currently on chemotherapy (4) Weakness: Improved with treatment of anemia. Continue OT and PT. (5) Myoclonus dystonia: Stable. Continue current medical management (6) S/P deep brain stimulator placement: Stable. Continue current medical management Plan Home todayJuly 21 Admission HPI Per Admitting Provider This is a 54-year-old male with a history of metastatic pancreatic cancer, currently on chemotherapy, who presents to the emergency department today on account of generalized weakness and fatigue. Given his previous symptoms and presentations, he is who was at bedside and gives part of the history said she called the on-call inspector bicycle who advised him to come to the emergency department. Here in the emergency department, his hemoglobin was found to be 6.7. He denies blood in the stool or blood in the urine. He will be admitted to the hospital for transfusion and further management. Discharge Exam General-alert and oriented x3, no fever, no chills HEENT-head atraumatic and normocephalic, pupils equal and reactive to light, extraocular muscles intact Neck-no lymphadenopathy or thyromegaly, trachea midline Chest-clear to auscultation. No rales, wheezing or rhonchi Cardiac-regular rate and rhythm, normal S1 and S2 Abdomen-normal bowel sounds, no hepatosplenomegaly Extremities-no cyanosis, clubbing, or edema Skinpallor noted Neuro-cranial nerves II through XII intact, motor and sensory function within normal limits, strength symmetrical with generalized weakness, no focal deficits Psych-normal affect, normal mood Discharge Plan Discharge Items Patient Disposition: Home - Self-Care Reason For Visit: WEAKNESS, ANEMIA Discharge Diagnosis: Symptomatic anemia, iron deficiency, hypokalemia, weakness Activity: Resume your previous activity Non-emergency contact: Primary Care Provider and Oncologist Call non-emergency contact if: your symptoms worsen Follow-up/Referrals: Macrina Aguilera MD [Primary Care Provider] - Diet: Regular Addtl Attending Provider Instructions: Take an iron supplement, ferrous sulfate 325 mg, twice daily. All other medications remain the same. Follow-up with oncologist as soon as possible Pending Studies at Discharge: No Stand-Alone Forms: My [facility], Smoking Cessation Medications and DC Order Prescriptions: New ferrous sulfate 325 mg (65 mg iron) Tablet,Delayed Release (Dr/Ec) 325 mg PO BIDM Qty: 60 0RF Continued cholecalciferol (vitamin D3) 50 mcg (2,000 unit) capsule 50 mcg PO QAM cyanocobalamin (vitamin B-12) 2,500 mcg tablet 2,500 mcg PO QAM citalopram 20 mg tablet 20 mg PO BID ascorbic acid (vitamin C) [Vitamin C] 500 mg Tablet 500 mg PO QAM melatonin 3 mg Tablet 3 mg PO HS potassium chloride 10 mEq Capsule, Extended Release 10 meq PO QAM topiramate [Topamax] 100 mg Tablet 100 mg PO BID topiramate [Topamax] 50 mg Tablet 50 mg PO BID oxycodone-acetaminophen 5-325 mg tablet 1 tab PO Q6H mirtazapine [Remeron] 15 mg tablet 7.5 mg PO HS 30 Days Qty: 15 0RF Discharge Orders: Discharge Order (Routine); Ordered 07/21/24 Ordered By: Abner Burns Admission Data Admit Date/Time: 07/18/24 14:46 Attending Provider: Abner Burns Admit Provider: Juice Padron Primary Care Provider: Macrina Aguilera Other Providers: Nishant Jarvis; Juice Padron Hospital Stay Data Consultations 07/18/24 14:32 ED Decision to Admit Stat 07/18/24 14:42 ED Decision to Admit Stat Pending Results Patient Have Any Pending Studies at Discharge: No Discharge Instructions Given to Patient (Per Discharging Provider) Take an iron supplement, ferrous sulfate 325 mg, twice daily. All other medications remain the same. Follow-up with oncologist as soon as possible Total Time Total Time Spent Total Time Spent (In Minutes): 45 minutes Coding Level of Care Code 94379 INP/OBS DISCH >30 MIN Diagnoses Symptomatic anemia D64.9 UTI (urinary tract infection) N39.0 Pancreatic cancer metastasized to liver C25.9; C78.7 Weakness R53.1 Myoclonus dystonia G24.8; G25.3 S/P deep brain stimulator placement Z96.89
[2024-07-21 13:24] VITALS: PULSE 93; TEMP 97.9
[2024-07-21 14:46] VITALS: BP 110/67
[2024-07-21] MEDS ORDERED: FERROUS SULFATE 325 MG TAB PO SCH (17:00)
== END 2024-07-21 15:53 | disposition home or self-care (01) | DRG 812 ==
LOC: ED 12:53 → 3N 14:46 → SUATTDRO 14:46 → 3N 16:06

== ENCOUNTER 2024-08-19 13:33 | Inpatient (IN) ==
[~2024-08-19 13:33] MED LIST: ALUMINUM/MAGNESIUM SUSP 30 ML UDC PO PRN; MoRPHine SULFATE 2 MG/ML CARP IV PRN; ONDANSETRON INJ 2 MG/ML 2 ML VIAL IV PRN; SODIUM CHLORIDE 0.9% 100 ML IV PRN; oxyCODONE HCL IR 5 MG TAB (IMMEDIATE RELEASE) PO PRN
--- NOTE | 2024-08-19 13:44 | History & Physical Report ---
Date of Service August 19, 2024 Assessment & Plan (1) Symptomatic anemia: (2) Pancreatic cancer: (3) Iron deficiency: Plan 54-year-old male with recently diagnosed pancreatic cancer with mets to the liver who has been persistently anemic after chemotherapy. Called to coordinate transfusion of blood. No overt signs of blood loss. Patient takes iron for iron deficiency anemia and his stools are generally dark. Patient has some mild increased abdominal pain and oncology is recommended a CT scan abdomen pelvis which also be helpful to rule out any type of retroperitoneal bleed etc. #Symptomatic anemia the patient be transfused 2 units packed red blood cells. Surveillance labs in the morning #Pancreatic carcinoma with patient will have CT scan abdomen pelvis as mentioned. Pain is more focal in the area of the liver. He has pain medications available of oxycodone and parenteral morphine #Iron deficiency anemia. The iron is held at this time likely restart on discharge. #Depression patient will remain on Topamax and citalopram DVT prevention at this time with anemia will be SCDs Admission and Anticipated Discharge Date Admission Date: August 19, 2024 History of Present Illness Primary Care Provider: Macrina Aguilera MD 54-year-old male who has a history of BRCA2 mutation found to have metastatic pancreatic cancer (mets to the liver) who [facility] with symptomatic anemia with a hemoglobin of 6.7 and dyspnea with exertion and profound weakness. Dr. Rashid called and tried to coordinate a transfusion but the outpatient infusion clinic was not able accommodate. Patient has had no signs of acute blood loss or melena he does take iron so stools are generally dark but they have not been darker than usual. His abdominal pain is mostly low right sided to just below his right ribs It is positional and reproducible on exam Allergies Allergy/AdvReac Type Severity Reaction Status Date / Time erythromycin base Allergy Unknown Rash Verified 08/10/24 07:07 Penicillins Allergy Unknown Rash Verified 08/10/24 07:07 Home Medications Medication Instructions Recorded Confirmed Type cholecalciferol (vitamin D3) 50 50 mcg PO QAM 06/28/23 08/19/24 History mcg (2,000 unit) capsule citalopram 20 mg tablet 20 mg PO BID 06/28/23 08/19/24 History cyanocobalamin (vitamin B-12) 2,500 mcg PO QAM 06/28/23 08/19/24 History 2,500 mcg tablet ascorbic acid (vitamin C) 500 mg 500 mg PO QAM 07/09/23 08/19/24 History tablet (Vitamin C) melatonin 3 mg tablet 3 mg PO HS Sleep 06/16/24 08/19/24 History potassium chloride 10 mEq 10 meq PO QAM 06/16/24 08/19/24 History capsule,extended release topiramate 100 mg tablet (Topamax) 100 mg PO BID 06/18/24 08/10/24 History topiramate 50 mg tablet (Topamax) 50 mg PO BID 06/18/24 08/10/24 History oxycodone-acetaminophen 5 mg-325 1 tab PO Q6H 06/28/24 08/19/24 History mg tablet ferrous sulfate 325 mg (65 mg 325 mg PO BIDM #60 tabs 07/21/24 08/19/24 Rx iron) tablet,delayed release Past Med/Surg History Problem List Acute hypokalemia (Acute) Symptomatic anemia (Acute) Weakness (Acute) Pancreatic cancer (Acute) Anemia (Acute) Iron deficiency Liver lesion Trochanteric bursitis, right hip Stiff neck Cervical arthritis Encounter for pre-operative examination Medical History 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 [facility]. 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 Obesity Dysphagia Chronic coughing with swallowing and occasional choking -pt attributes to cervical spine osteoarthritis Spinal osteoarthritis BRCA gene positive Essential tremor Myoclonus dystonia Following with [facility] tremors, sometimes stutters with and pt reports he can go off into a stare but can understand what you are saying. Surgical History Port-A-Cath in place (06/18/24) Insertion Access Port with Fluoroscopy Right Internal Jugular Vein(Right) - Nils Chung DO History of arthroscopic surgery of shoulder (07/2023) rotator cuff, bicep repair - right History of vasectomy History of wisdom tooth extraction History of colonoscopy History of hand surgery Right History of foot surgery Left S/P deep brain stimulator placement Pt instructed to bring remote DOS Social History Smoking Status: Never smoker Tobacco Type: Cigarettes Second Hand Exposure: No; Do You Dip or Chew Tobacco: No; Hx Alcohol Use: No Hx Substance Use: No Preferred Language: Mongolian Communication Ability: Effective Kettle Skimmer Required: No Beliefs That Will Affect Care: None Current Living Situation: Spouse Current Living Situation Comment: lives at home with Feels Safe at Home: Yes Safety Concerns: Feels Safe At This Time Assistive Devices: Cane, Walker and Wheelchair Review of Systems Review of Systems: Mild distress and moderate to severe fatigue no headache, no visual changes no speech or swallowing issues no chest pain, pressure or palpitations Dyspnea on exertion without cough Complains of right-sided abdominal pain, without nausea or vomiting, diarrhea or constipation no dysuria, hematuria or frequency no focal joint pain or swelling no back pain, CVA tenderness or radicular pain no bruising, bleeding or rashes no focal signs of weakness or numbness or altered sensation no complaints of anxiety or depression.. Physical Exam Physical Exam: The patient appeared slightly cachectic and definitely pale Vital signs as documented. Head exam is normocephalic atraumatic Neck is without JVD, thyromegaly, or carotid bruits. Lungs are clear to auscultation, decreased breath sounds at the bases Cardiac exam, Rhythm is regular.. No murmurs, rubs or gallops. Abdominal exam reveals hypoactive bowel sounds tender to the right side worse near the liver no bruising seen Extremities are 1-2+ edematous bilaterally (this is chronic) and both pedal pulses are present Neurologic exam is alert and oriented, no focal loss of strength or sensation Skin is without bruises or rashes Psychologically is without concerns for anxiety or depression.. Code Status & VTE Plan VTE Prophylaxis Plan VTE Prophylaxis will be ordered: Yes PG Care Time/CCT Total # of Minutes Spent Total Time Spent with Patient: Total time spent is greater than 50% in coordination of care (as documented) at patient's floor/unit and/or counseling patient: Coding Level of Care Code 62727 INT INP/OBS CARE Diagnoses Symptomatic anemia D64.9 Pancreatic cancer C25.9 Pancreatic malignancy location: unspecified Iron deficiency E61.1 (2) Pancreatic cancer Pancreatic malignancy location: unspecified Qualified Code(s): C25.9 - Malignant neoplasm of pancreas, unspecified
[2024-08-19] MEDS: OPTIRAY 320 100ml IV ONE (16:34)
--- NOTE | 2024-08-19 17:03 | CT Scan Report ---
CT ABDOMEN with INTRAVENOUS CONTRAST HISTORY: Abdominal pain TECHNIQUE: CT abdomen and pelvis with contrast. IV CONTRAST: 100 mL of OMNIPAQUE 300 ENTERIC CONTRAST: Not Given COMPARISON: CT abdomen pelvis May 25, 2024. FINDINGS: LOWER CHEST: Unremarkable LIVER: Interval increase of diffuse hepatic metastatic disease. For example a mass in the right hepatic lobe near the dome measures up to 5.2 cm in the current examination, previously 4.3 cm. The lesions have also increased in number GALLBLADDER/BILIARY: Unremarkable gallbladder. No abnormal biliary dilatation. SPLEEN: Unremarkable. PANCREAS: Interval enlargement of the distal pancreatic body/tail mass, now measuring up to 4.4 cm in diameter, previously 3.4. ADRENALS: Unremarkable. KIDNEYS: 2 mm nonobstructing calculus in the lower pole of the left kidney. No hydronephrosis identified in either kidney. PERITONEUM/RETROPERITONEUM. No lymphadenopathy by size criteria. No aortic aneurysm. GASTROINTESTINAL: Visualized bowel is normal in caliber. BONES: No acute findings. IMPRESSION: Interval disease progression with enlargement of the distal pancreas body/tail mass with interval progression of diffuse hepatic metastases. Electronically signed by Robert Medellin 08-19-2024 5:03 PM
[2024-08-19] MEDS: PROMETHAZINE 12.5 MG/50.5 ML BAG IV STA (17:35)
[2024-08-19] MEDS: MoRPHine SULFATE 4 MG/ML 1 ML CARP\\VIAL IV PRN (19:48)
[2024-08-19] MEDS: MELATONIN 3 MG TAB PO SCH (19:51)
[2024-08-19] MEDS: CITALOPRAM 20 MG TAB PO SCH (19:52)
[2024-08-19] MEDS: TOPIRAMATE 50 MG TAB PO SCH (20:09)
[2024-08-19] MEDS: TOPIRAMATE 100 MG TAB PO SCH (20:09)
[2024-08-20 08:13] LABS: Hematocrit (blood only) 24.6 % (42.0-52.0); Hemoglobin 7.9 g/dl (14.0-18.0); Mean Corpuscular Hemoglobin 28.8 pg (25.0-34.0); Mean Corpuscular Hgb Conc 32.1 g/dL (32.0-36.0); Mean Corpuscular Volume 89.8 fL (80.0-100.0); Mean Platelet Volume 10.4 fL (9.4-12.4); Platelet Count 167 K/uL (130-400); RDW Coefficient of Variation 16.8 % (11.5-14.5); RDW Standard Deviation 53.4 fL (36.4-46.3); Red Blood Count 2.74 M/uL (4.70-6.10); White Blood Count 9.32 K/ul (4.8-10.8)
[2024-08-20] MEDS ORDERED: SODIUM CHLORIDE 0.9% 100 ML IV PRN (08:20)
[2024-08-20 08:29] LABS: BUN Creatinine Ratio 32.6 (10-20); Calcium 8.4 mg/dl (8.6-10.3); Creatinine Clr Calc Pharmacy 198.8 ml/min; Potassium 3.4 mmol/L (3.5-5.1)
[2024-08-20] MEDS: CYANOCOBALAMIN (B-12) 500 MCG TABLET PO SCH (08:32)
[2024-08-20] MEDS: CHOLECALCIFEROL 25 MCG (1000 UNITS) TAB PO SCH (08:32)
[2024-08-20] MEDS: POTASSIUM CHLORIDE CRTAB 20 MEQ TABCR PO STA (11:05)
--- NOTE | 2024-08-20 12:45 | Hospitalist Progress Note ---
Date of Service August 20, 2024 Assessment & Plan (1) Symptomatic anemia: (2) Pancreatic cancer: (3) Iron deficiency: Plan 54-year-old male with recently diagnosed pancreatic cancer with mets to the liver who has been persistently anemic after chemotherapy. Called to coordinate transfusion of blood. No overt signs of blood loss. Patient takes iron for iron deficiency anemia and his stools are generally dark. Patient has some mild increased abdominal pain and oncology is recommended a CT scan abdomen pelvis which also be helpful to rule out any type of retroperitoneal bleed etc. #Symptomatic anemia/Chemotherapy induced anemia the patient be transfused 3 units packed red blood cells. Ct did not show retroperitoneal bleed, LDH normal to reduce concern for hemolysis #Pancreatic carcinoma CT scan abdomen pelvis interval disease progression with enlargement of the distal pancreas body tail mass and interval progression of diffuse hepatic metastasis pain is more focal in the area of the liver from expansion of liver due to metastasis.. He has pain medications available of oxycodone and parenteral morphine. Patient has developed paranoia and some altered thinking concern for toxic encephalopathy from the parenteral opiates. We will pursue CT scan of the head with contrast #Chronic essential tremor, patient has deep brain stimulator 2021 with recent adjustment of settings #Iron deficiency anemia. Iron measured and found to be low. With 3 units of blood patient is getting some parenteral iron infusions. Will continue to survey as iron level need for supplementation of additional iron #Depression patient will remain on Topamax and citalopram DVT prevention at this time with anemia will be SCDs Admission and Anticipated Discharge Date Admission Date: August 19, 2024 Subjective Patient is paranoid had some issues last evening where he thought people were going to hurt him. He asked what happened last night he said the nurses put on the show for him was Catarino Bryant. He got the month wrong although he just recently changed into August and he was slow to get the year correct initially saying was 1923 and sanguis 2023. Is no focal loss but he does have an altered thought pattern Abdomen remains tender in the area of the liver Physical Exam Physical Exam: Patient is alert she is oriented x 3 although he did get the month wrong he is have slow thinking any has some tangential thinking with inappropriate insertion of the subject matter such as the nurses put on a show last night when asked which show was he said it was Catarino Radharaymundo. is at the bedside and is concerned due to the confusion. Results & Data Results & Data Vital Signs (Past 12 Hours) Vital Signs Temp Pulse Pulse Resp BP BP Pulse Ox 08/20/24 12:19 98.4 F 100 H 18 117/75 97 08/20/24 11:33 98.4 F 101 H 18 120/77 96 08/20/24 10:33 98.1 F 100 H 18 106/67 95 08/20/24 10:03 97.9 F 114 H 18 108/69 95 08/20/24 09:48 98.1 F 101 H 18 114/67 95 08/20/24 09:45 98.2 F 123 H 18 126/66 96 08/20/24 09:34 97.5 F L 109 H 18 111/71 94 08/20/24 09:27 97.5 F L 109 H 18 111/71 94 08/20/24 07:41 97.5 F L 117 H 20 125/80 94 O2 Del Method O2 Flow Rate 08/20/24 12:19 0 08/20/24 11:33 0 08/20/24 10:33 0 08/20/24 10:03 0 08/20/24 09:48 0 08/20/24 09:45 0 08/20/24 09:34 0 08/20/24 09:27 0 08/20/24 07:41 Room Air Laboratory Results CBC reviewed chemistry reviewed LDH reviewed iron Ordered CT scan of the brain with contrast metastatic disease PG Care Time/CCT Total # of Minutes Spent Total Time Spent with Patient: Total time spent is greater than 50% in coordination of care (as documented) at patient's floor/unit and/or counseling patient: Coding Diagnoses Symptomatic anemia D64.9 Pancreatic cancer C25.9 Pancreatic malignancy location: unspecified Iron deficiency E61.1 (2) Pancreatic cancer Pancreatic malignancy location: unspecified Qualified Code(s): C25.9 - Malignant neoplasm of pancreas, unspecified
[2024-08-20] MEDS: OPTIRAY 320 100ml IV ONE (13:00)
--- NOTE | 2024-08-20 13:29 | CT Scan Report ---
CT head/brain w con CLINICAL HISTORY: eval met disease, has br stim COMPARISON STUDY: Head CT May 25, 2024. TECHNIQUE: Axial images of the head were obtained following intravenous injection of 90 cc of Optiray 320 IV. A dose lowering technique was utilized adhering to the principles of ALARA. FINDINGS: Bilateral stimulators terminate within the thalami. This exam is mildly compromised by asso ciated artifact. No acute intracranial hemorrhage is identified on contrast enhanced exam. There is n o intracranial mass or pathologic enhancement. The appearance of the brain is unchanged. Ventricular system is unremarkable. Basal cisterns are patent. There are no extra-axial collections. No calvarial lesions are identified. IMPRESSION: No evidence for metastatic disease. ACT 112: Negative or not required by law. Electronically signed by: Heriberto Herrera M.D. 08/20/2024 1:28 PM
[2024-08-20] MEDS: ACETAMINOPHEN 325 MG TAB PO PRN (15:20)
[2024-08-20 18:33] LABS: Adenovirus F 40/41 PCR Not Detected (NotDetected); Astrovirus PCR Not Detected (NotDetected); Campylobacter PCR Not Detected (NotDetected); Cryptosporidium PCR Not Detected (NotDetected); Cyclospora cayetanensis PCR Not Detected (NotDetected); Entamoeba histolytica PCR Not Detected (NotDetected); Enteroaggregative E.coli(EAEC) Not Detected (NotDetected); Enteropathogenic E.coli (EPEC) Not Detected (NotDetected); Enterotoxigenic E.coli (ETEC) Not Detected (NotDetected); Giardia lamblia PCR Not Detected (NotDetected); Norovirus GI/GII PCR Not Detected (NotDetected); Plesiomonas shigelloides PCR Not Detected (NotDetected); Rotavirus A PCR Not Detected (NotDetected); Salmonella PCR Not Detected (NotDetected); Sapovirus PCR Not Detected (NotDetected); Shiga-like Toxin E.coli (STEC) Not Detected (NotDetected); Shigella/Enteroinvasive E.coli Not Detected (NotDetected); Vibrio cholerae PCR Not Detected (NotDetected); Vibrio species PCR Not Detected (NotDetected); Yersinia enterocolitica PCR Not Detected (NotDetected)
[2024-08-20 22:54] VITALS: TEMP 97.3
[2024-08-21 06:51] LABS: Calcium 8.1 mg/dl (8.6-10.3); Potassium 3.3 mmol/L (3.5-5.1)
[2024-08-21 06:56] LABS: Creatinine Clr Calc Pharmacy 213.2 ml/min
[2024-08-21] MEDS ORDERED: POTASSIUM CHLORIDE CRTAB 20 MEQ TABCR PO STA (07:21)
[2024-08-21 07:58] VITALS: BP 109/72; RESP 20; O2SAT 95
[2024-08-21 08:31] LABS: Hematocrit (blood only) 25.6 % (42.0-52.0); Hemoglobin 8.5 g/dl (14.0-18.0); Mean Corpuscular Hemoglobin 29.4 pg (25.0-34.0); Mean Corpuscular Hgb Conc 33.2 g/dL (32.0-36.0); Mean Corpuscular Volume 88.6 fL (80.0-100.0); RDW Coefficient of Variation 16.4 % (11.5-14.5); RDW Standard Deviation 51.1 fL (36.4-46.3); Red Blood Count 2.89 M/uL (4.70-6.10)
[2024-08-21 08:40] LABS: Mean Platelet Volume 10.6 fL (9.4-12.4); Platelet Count 174 K/uL (130-400); White Blood Count 7.86 K/ul (4.8-10.8)
[2024-08-21 08:42] LABS: Platelet Estimate Normal (Normal)
[2024-08-21] MEDS: LOPERAMIDE HCL 2 MG CAP PO PRN (10:15)
[2024-08-21] MEDS: POTASSIUM CHLORIDE CRTAB 20 MEQ TABCR PO ONE (10:19)
--- NOTE | 2024-08-21 11:00 | Discharge Summary ---
Discharge Summary Date of Service August 21, 2024 Principal Dx & Hospital Course #1 = Principal Diagnosis (1) Symptomatic anemia: The patient received 3 units of packed red blood cells for hemoglobin 6.7 on admission. Hemoglobin has improved to 8.5. No evidence of lower GI bleeding or retroperitoneal bleed. CT scan of the abdomen on admission however reveals increase in number of liver mets and increase in size of pancreatic mass (2) Pancreatic cancer: Continue outpatient oncology treatment. CT scan on admission reveals increased number of metastatic lesions to the liver and increase in size of the pancreatic mass (3) Iron deficiency: Continue oral iron replacement (4) Volume depletion: IV fluids ordered (5) Acute hypokalemia: Mild. Oral potassium supplementation Plan Home today, August 21, after 1 L normal saline given intravenously Admission HPI Per Admitting Provider 54-year-old male who has a history of BRCA2 mutation found to have metastatic pancreatic cancer (mets to the liver) who [facility] with symptomatic anemia with a hemoglobin of 6.7 and dyspnea with exertion and profound weakness. Dr. Rashid called and tried to coordinate a transfusion but the outpatient infusion clinic was not able accommodate. Patient has had no signs of acute blood loss or melena he does take iron so stools are generally dark but they have not been darker than usual. His abdominal pain is mostly low right sided to just below his right ribs It is positional and reproducible on exam Discharge Plan Discharge Items Patient Disposition: Home - Self-Care Reason For Visit: WITH/ANEMIA FROM CHEMO - NEEDS INFUSION Discharge Diagnosis: Acute on chronic anemia due to chemotherapy, volume depletion Activity: Resume your previous activity Non-emergency contact: Primary Care Provider and Oncologist Call non-emergency contact if: your symptoms worsen Follow-up/Referrals: Macrina Aguilera MD [Primary Care Provider] - (PLEASE CALL YOUR PRIMARY CARE PROVIDER TO SCHEDULE A HOSPITAL DISCHARGE FOLLOW-UP APPOINTMENT WITHIN 7-10 DAYS) Diet: Regular Addtl Attending Provider Instructions: All medications remain the same. Follow-up with oncology as scheduled Pending Studies at Discharge: No Stand-Alone Forms: My [employer], Smoking Cessation Medications and DC Order Prescriptions: New loperamide 2 mg Capsule 2 mg PO Q6H PRNQty: 0 0RF Continued cholecalciferol (vitamin D3) 50 mcg (2,000 unit) capsule 50 mcg PO QAM cyanocobalamin (vitamin B-12) 2,500 mcg tablet 2,500 mcg PO QAM citalopram 20 mg tablet 20 mg PO BID ascorbic acid (vitamin C) [Vitamin C] 500 mg Tablet 500 mg PO QAM melatonin 3 mg Tablet 3 mg PO HS potassium chloride 10 mEq Capsule, Extended Release 10 meq PO QAM topiramate [Topamax] 100 mg Tablet 100 mg PO BID topiramate [Topamax] 50 mg Tablet 50 mg PO BID oxycodone-acetaminophen 5-325 mg tablet 1 tab PO Q6H ferrous sulfate 325 mg (65 mg iron) Tablet,Delayed Release (Dr/Ec) 325 mg PO BIDM Qty: 60 0RF Discharge Orders: Discharge Order (Routine); Ordered 08/21/24 Ordered By: Abner Burns Admission Data Admit Date/Time: 08/19/24 15:00 Attending Provider: Abner Burns Admit Provider: August Franco Primary Care Provider: Macrina Aguilera Other Providers: [facility] Fax Hospital Stay Data Diagnostic Imagining Performed 08/19/24 13:32 CT Abd [CT abdomen oral and IV con] Routine 08/20/24 10:58 CT head/brain w con Routine Pending Results Patient Have Any Pending Studies at Discharge: No Discharge Instructions Given to Patient (Per Discharging Provider) All medications remain the same. Follow-up with oncology as scheduled Total Time Total Time Spent Total Time Spent (In Minutes): 50 minutes Coding Level of Care Code 06062 INP/OBS DISCH >30 MIN Diagnoses Symptomatic anemia D64.9 Pancreatic cancer C25.9 Pancreatic malignancy location: unspecified Iron deficiency E61.1 Volume depletion E86.9 Acute hypokalemia E87.6
[2024-08-21] MEDS: SODIUM CHLORIDE 0.9% 1,000 ML IV SCH (11:05)
[2024-08-21 15:27] VITALS: PULSE 101
[2024-08-21] MEDS: HEPARIN 100 UNIT/ML 5ML FLUSH FLUSH STA (15:59)
== END 2024-08-21 16:14 | disposition home health service (06) | DRG 812 ==
LOC: 2N → SUATTDRO 13:33